=== PATIENT | female | born 1965 | race Caucasian/White ===

== ENCOUNTER 2023-10-13 16:45 | Outpatient (AMB) | payer OTHER, SELFPAY ==
--- NOTE | 2023-10-13 16:52 | MHC.PC.OV ---
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: No Was dental information given to patient?: Patient has dentist HPI HPI Comments History of Present Illness Details This is a 58-year-old female with mild major depression, anxiety, hypertension and pure hypercholesterolemia that comes accompanied by to establish care. She would like counseling and psychiatry for depression. Blood pressure stable. Complains of palpitation and used to see a Cardiology in the past. Complains of muscle spasm and lumbar pain and will be referred to Ortho. Last colonoscopy was 3 years ago and needed to be repeated in 5 years. Had hysterectomy for benign reasons therefore no need for Pap smear. [facility] Surgical History (Updated 10/13/23 @ 17:20 by Angella Bauman MD) H/O lithotripsy History of hysterectomy Family History Father Diabetes Prostate cancer Hypertension Mother Diabetes Hypertension Cancer Family/Other Substance use disorder Mental health disorder Social History Housing: Apartment Alcohol intake: never Patient Tobacco Use Status: Never used Tobacco e-Cigarette/Vaping Use: Never Used Second Hand Smoke Exposure: No service: No Current occupational status: unemployed Cognitive needs: No Hearing needs: No Vision needs: Yes Questionnaire PHQ-9 Over the last 2 weeks, how often have you been bothered by any of the following problems? 1. Little interest or pleasure in doing things: not at all 2. Feeling down, depressed, or hopeless: nearly every day 3. Trouble falling or staying asleep, or sleeping too much: more than half the days 4. Feeling tired or having little energy: not at all 5. Poor appetite or overeating: not at all 6. Feeling bad about yourself - or that you are a failure or have let yourself or your family down: not at all 7. Trouble concentrating on things, such as reading the newspaper or watching television: several days 8. Moving or speaking so slowly that other people could have noticed. Or the opposite - being so fidgety or restless that you have been moving around a lot more than usual: several days 9. Thoughts that you would be better off or of hurting yourself in some way: not at all Total score: 7 Depression Screening Interpretation: Positive Depression Screening Follow-up: Existing condition, In treatment and Follow-up Visit Requested Depression Screening Done: Yes 27937 - PHQ-9 Billing: Yes Source: Developed by Drs. Juan Manuel Zimmerman, Saumya Bauman, Leroy Greene and colleagues, with an educational jere from [employer]. Thrive Questionnaire Date Thrive assessed: 10/13/23 I am a: Patient What is your living situation today?: I have a steady place to live Within the past 12 months, did the food you bought not last and you didn't have the money to get more?: Never true Within the past 12 months, did you worry whether your food would run out before you got money to buy more?: Never true Do you have trouble paying for medicines?: No Do you have trouble getting transportation to medical appointments?: No Do you have trouble paying your heating and electricity bill?: No Do you have trouble taking care of your child, family member or friend?: No Do you have trouble with day-to-day activities such as bathing, preparing meals, shopping, managing finances, etc.?: No Are you currently unemployed and looking for a job?: No Are you interested in more education?: No Please select the resources that you would like help with: None Currently or been in a relationship where the following occur: no concerns reported THRIVE Score: 0 AUDIT C Alcohol Use Questionnaire (AUDIT-C) 1. How often do you have a drink containing alcohol?: Never Total Score: 0 Score Reviewed/Action Taken: No KATHERINE-7 AMB Questionnaire KATHERINE-7 Date KATHERINE - 7 assessed: 10/13/23 Feeling nervous, anxious, or on edge: 3 = Nearly every day Not being able to stop or control worryin = More than half the days Worrying too much about different things: 3 = Nearly every day Trouble relaxin = Several days Being so restless that it is hard to sit still: 1 = Several days Becoming easily annoyed or irritable: 1 = Several days Feeling afraid as if something awful might happen: 1 = Several days Total KATHERINE-7 score (0-4 normal; 5-9 mild; 10-14 moderate; 15-21 severe): 12 Source: Developed by Drs. Juan Manuel Zimmerman, Saumya Bauman, Leroy Greene and colleagues, with an educational jere from [employer]. KATHERINE-7 Assessment Billing KATHERINE-7 Assessment Tool: KATHERINE-7 Assessment 16456 Review of Systems Card Denies chest pain at rest, Denies chest pain with activity, Denies edema, Denies irregular heart rhythm, Denies claudication, Denies dyspnea, Denies dyspnea on exertion, Denies orthopnea, Denies paroxysmal nocturnal dyspnea and Denies slow heart rate Resp Denies cough, Denies dyspnea and Denies dyspnea on exertion Physical exam (Primary Care) Vital Signs: Last Vital Signs BP 130/80 10/13/23 16:55 BMI result Body Mass Index 33.8 Tobacco/Smoking Status: Tobacco use Status Tobacco use date assessed 10/13/23 10/13/23 17:07 Patient Tobacco Use Status Never used Tobacco 10/13/23 17:07 e-Cigarette/Vaping Use Never Used 10/13/23 17:07 PHQ-9: PHQ-9 Score PHQ-9: Total score 7 10/13/23 17:37 Depression Screening Interpretation: Positive Depression Screening Follow-up: Existing condition, In treatment and Follow-up Visit Requested Thrive Assessment: Date of Thrive Assessment Date Thrive assessed 10/13/23 10/13/23 17:07 Currently or been in a relationship where the following occur: no concerns reported Resp Effort & Inspection: normal respiratory effort Auscultation: clear to auscultation bilaterally Cardio Jugular venous distension: no JVD Rate: regular rate Rhythm: regular rhythm Heart sounds: S1 normal heart sound present and S2 normal heart sound present Extrem General: Yes full ROM Assessment and Plan Assessment & Plan (1) Mild major depression: Code(s): F32.0 - Major depressive disorder, single episode, mild Plan: Continue bupropion. Referred to counseling. (2) Pure hypercholesterolemia: Code(s): E78.00 - Pure hypercholesterolemia, unspecified Plan: Continue statins. (3) KATHERINE (generalized anxiety disorder): Code(s): F41.1 - Generalized anxiety disorder Plan: Continue bupropion. (4) Essential hypertension: Code(s): I10 - Essential (primary) hypertension Plan: Continue losartan. Blood pressure goal is equal or less than 130/80. Orders: Orders ECG 12 lead EKG 10/13/23 R00.2 - Palpitations Comprehensive [place]. Panel Fast 10/13/23 I10 - Essential (primary) hypertension Thyroid Stimulating Hormone 10/13/23 R00.2 - Palpitations Vitamin D 25-OH Total 10/13/23 E55.9 - Vitamin D deficiency, unspecified US renal BI 10/13/23 N20.0 - Calculus of kidney Vitamin B12 and Folate 10/13/23 E53.8 - Deficiency of other specified B group vitamins MM screening mammo BI 10/13/23 Z12.31 - Encounter for screening mammogram for malignant neoplasm of breast XR DEXA axial skeleton 10/13/23 N95.9 - Unspecified menopausal and perimenopausal disorder Lipid Panel 10/13/23 E78.5 - Hyperlipidemia, unspecified, I10 - Essential (primary) hypertension Complete Blood Count Auto Diff 10/13/23 D64.9 - Anemia, unspecified, M62.838 - Other muscle spasm Referrals Cardiology Referral R00.2 - Palpitations Counseling Referral F32.0 - Major depressive disorder, single episode, mild, F41.1 - Generalized anxiety disorder Orthopedics Referral M54.50 - Low back pain, unspecified Coding Level of Care Code New Pt Level 4 (31357) Complex EM visit Add On G2211 Diagnoses Mild major depression F32.0 Pure hypercholesterolemia E78.00 KATHERINE (generalized anxiety disorder) F41.1 Essential hypertension I10 Additional Codes KATHERINE-7 Assessment Billing - KATHERINE-7 Assessment Tool: KATHERINE-7 Assessment 65534 ([id number]) Time Spent (min) 24
[2023-10-13 16:55] VITALS: BP 130/80; BMI 33.8
== END 2023-10-13 17:34 | disposition home or self-care (01) ==
PROVIDERS: PCP Internal Medicine; Visit Provider Internal Medicine
DX: I10 Essential (primary) hypertension (principal); F32.0 Major depressive disorder, single episode, mild; E78.00 Pure hypercholesterolemia, unspecified; F41.1 Generalized anxiety disorder
CPT/HCPCS: 99204; G2211

== ENCOUNTER 2023-10-24 12:52 | Outpatient (REF) | payer OTHER, SELFPAY ==
--- NOTE | ~2023-10-24 | US_ITS ---
EXAMINATION: US RETROPERITONEAL LIMITED (RENAL ONLY) CLINICAL INFORMATION: Calculus of kidney. COMPARISON: None available. TECHNIQUE: Real-time imaging of the kidneys. FINDINGS: RIGHT KIDNEY: 10.4 x 5.0 x 5.2 cm (SAG x AP x TRV). The kidney is normal in size, contour, and echogenicity. Renal cortical thickness is normal. There are at least one echogenic focus measuring 3 mm with twinkle artifact suggestive of a non-obstructing stone. No focal parenchymal lesions or hydronephrosis. LEFT KIDNEY: 9.2 x 4.8 x 5.0 cm (SAG x AP x TRV). The kidney is normal in size, contour, and echogenicity. Renal cortical thickness is normal. There are multiple echogenic foci seen, the largest measuring 3 mm suggestive of a renal stone. No shadowing seen. No focal parenchymal lesions or hydronephrosis. US/US renal BI IMPRESSION: Question of a non-obstructing renal calculi. CT would be the exam of choice for definitive diagnosis.
[2023-10-24 13:07] LABS: MANUAL DIFF FLAG NO
[2023-10-24 14:04] LABS: Basophils Percent Auto 0.5 % (0-2); Eosinophils Absolute Auto 0.1 X10*3/uL (0.0-0.4); Eosinophils Percent Auto 2.2 % (0-4); Hematocrit 41.9 % (37.0-47.0); Hemoglobin 13.8 g/dl (12.0-16.0); Imm Gran Abs Auto 0.02 X10*3/uL (0.00-0.03); Imm Gran Pct Auto 0.3 % (0.0-0.4); Lymphocytes Absolute Auto 1.9 X10*3/uL (1.2-4.9); Lymphocytes Percent Auto 29.6 % (20-40); Mean Corpuscular HGB Conc 32.9 g/dl (31.0-35.0); Mean Corpuscular Hemoglobin 26.5 pg (27.0-33.0); Mean Corpuscular Volume 80.6 fL (80.0-98.0); Mean Platelet Volume 10.4 fL (9.4-12.3); Monocytes Absolute Auto 0.7 X10*3/uL (0.1-1.2); Monocytes Percent Auto 10.1 % (2-11); Neutrophils Absolute Auto 3.7 x10*3/uL (2.0-8.3); Neutrophils Percent Auto 57.3 % (45-73); Platelet Count 277 X10*3/uL (160-400); Red Cell Distribution Width 13.2 % (11.0-16.0); White Blood Count 6.4 X10*3/uL (4.8-10.8)
[2023-10-24 14:47] LABS: Alanine Aminotransferase 31 U/L (0-31); Albumin Level 4.1 g/dL (3.5-5.0); Alkaline Phosphatase 72 U/L (39-117); Anion Gap 13 (12-20); Aspartate Amino Transferase 26 U/L (5-31); Bilirubin Total 0.4 mg/dL (0.0-1.0); Blood Urea Nitrogen 16 mg/dL (9-16); Calcium 9.5 mg/dL (8.4-10.2); Carbon Dioxide 23 mmol/L (22-29); Chloride 106 mmol/L (96-108); Cholesterol 205 mg/dL (<200); Estimated Glomerular Filt Rate > 60; Glucose Fasting 103 mg/dL (60-99); HDL Cholesterol 56 mg/dL (>40); LDL Cholesterol Calculated 124 mg/dL (<100); Potassium 3.9 mmol/L (3.3-5.1); Sodium 138 mmol/L (135-145); Total Protein 7.1 g/dL (6.5-8.0); Triglycerides 129 mg/dL (<150)
[2023-10-24 15:02] LABS: Thyroid Stimulating Hormone 1.11 uIU/mL (0.32-4.0); Vitamin D 25-OH Total 30.6 ng/mL (>30)
[2023-10-24 15:14] LABS: Folate 12.3 ng/mL (> or = 4.0); Vitamin B12 354 pg/mL (200-900)
== END 2023-10-24 12:53 | disposition home or self-care (01) ==
LOC: HO.US 12:52
PROVIDERS: PCP Internal Medicine; Visit Provider Internal Medicine
DX: N20.0 Calculus of kidney (principal); I10 Essential (primary) hypertension; E55.9 Vitamin D deficiency, unspecified; E53.8 Deficiency of other specified B group vitamins; R00.2 Palpitations; E78.5 Hyperlipidemia, unspecified; D64.9 Anemia, unspecified; M62.838 Other muscle spasm
CPT/HCPCS: 36415; 76775; 80053; 80061; 82306; 82607; 82746; 84443; 85025

== ENCOUNTER 2023-11-14 13:16 | Outpatient (REF) | payer OTHER, SELFPAY ==
--- NOTE | ~2023-11-14 | MM_ITS ---
EXAMINATION: MM SCREENING DIGITAL BREAST TOMOSYNTHESIS, BILATERAL CLINICAL INFORMATION: Screening. Asymptomatic. COMPARISON: Mammography: There are no prior mammograms for comparison. TECHNIQUE: Digital breast tomosynthesis is performed in both the craniocaudal and mediolateral oblique views along with computer-aided detection (CAD). Synthesized 2D images are generated from the tomosynthesis. FINDINGS: There are scattered areas of fibroglandular density (ACR BI-RADS breast composition Category b). There are no significant masses, abnormal calcifications, or other abnormalities. MM/MM tomosynthesis screening BI IMPRESSION: No mammographic evidence of malignancy. ASSESSMENT: BI-RADS BI-RADS 1 - Negative RECOMMENDATION: Routine annual mammography screening. 1 year F/U This examination should not preclude the clinical evaluation of a suspicious palpable abnormality. This patient's information was entered into a reminder system with a target due date for their next mammogram.
--- NOTE | ~2023-11-14 | MM_ITS ---
EXAMINATION: BONE DENSITOMETRY CLINICAL INDICATION: Unspecified menopausal and perimenopausal disorder. COMPARISON: This is the patient's baseline examination. TECHNIQUE: Using a Gingr DXA System (software version: 13.1) manufactured by [employer], dual-energy x-ray absorptiometry was performed of the lumbar spine and left hip. The images are of good technical quality. Summary results are attached. FINDINGS: LEFT FEMUR, NECK: BMD 0.956 g/cm2, Z-score 0.4, T-score -0.6, normal. LEFT FEMUR, TOTAL: BMD 1.070 g/cm2, Z-score 1.1, T-score 0.5, normal. AP SPINE L1-L4: BMD 1.184 g/cm2, Z-score 0.8, T-score 0.0, normal. IDENTIFIED RISK FACTORS: Menopause, hysterectomy, bilateral oophorectomy, parental hip fracture, height loss. HISTORY OF FRACTURE: None listed. MEDICATIONS: Calcium. MM/XR DEXA axial skeleton IMPRESSION: 1. DIAGNOSIS: Normal bone density based on the lowest T-score value of -0.6 in the femoral neck applying World Health Organization criteria. 2. 10-YEAR FRACTURE RISK PREDICTION, FRAX: According to the guidelines, FRAX calculation should only be performed on patients in the osteopenia bone density category. Therefore, FRAX was not performed on this patient. 3. Treatment Recommendations: NOF guidelines recommend consideration for treatment in postmenopausal women and men age 50 and older presenting with the following: -A hip or vertebral (clinical or morphometric) fracture. -T-score less than or equal to -2.5 at the femoral neck or spine after appropriate evaluation to exclude secondary causes. -Low bone mass at the hip or spine and a 10-year fracture probability by FRAX of greater than or equal to 3% for hip fracture or greater than or equal to 20% for major osteoporotic fracture based on the [place] adapted WHO algorithm. 4. Other Recommendations: All treatment decisions require clinical judgment and consideration of individual patient factors, including patient preferences, comorbidities, previous drug use, risk factors not captured in the FRAX model (e.g. frailty, falls, vitamin D deficiency, increased bone turnover, interval significant decline in bone density) and possible under or overestimation of fracture risk by FRAX. FUTURE SCAN RECOMMENDATION: People with diagnosed cases of osteoporosis or at high risk for fracture should have regular bone mineral density tests. For patients eligible for Medicare, routine testing is allowed once every 2 years. The testing frequency can be increased to one year for patients who have rapidly progressing disease, those who are receiving or discontinuing medical therapy to restore bone mass, or have additional risk factors.
== END 2023-11-14 13:17 | disposition home or self-care (01) ==
LOC: HO.MAMMO 13:16
PROVIDERS: PCP Internal Medicine; Visit Provider Internal Medicine
DX: Z12.31 Encounter for screening mammogram for malignant neoplasm of breast (principal); Z13.820 Encounter for screening for osteoporosis; Z78.0 Asymptomatic menopausal state
CPT/HCPCS: 77063; 77067; 77080

== ENCOUNTER → 2023-11-14 13:45 | Outpatient (BNV) | payer OTHER, SELFPAY | PROVIDERS: PCP Internal Medicine; Visit Provider Radiology Diagnostic Radiology | DX: Z12.31 Encounter for screening mammogram for malignant neoplasm of breast (principal) | CPT/HCPCS: 77063; 77067 ==

== ENCOUNTER 2023-11-20 16:10 | Outpatient (AMB) | payer OTHER, SELFPAY ==
[2023-11-20 16:12] VITALS: BP 120/70; BMI 34.0
--- NOTE | 2023-11-20 16:12 | A.OFFPC_ITS ---
Vital Signs 11/20/23 16:12 Height 5 ft 1 in Weight 180 lb BMI 34.0 BP 120/70 Blood Pressure Location Lt brachial Position Sitting Intake Visit Reasons: 6 week f/u Intake Note: Patient here for a 6 week follow up Shipper And Receiving Required: No Accompanied by: Spouse Allergies morphine Adverse Reaction (Severe, Verified 11/20/23 16:24) dizziness, heart palpitation Medication List - Last Reconciled 11/20/23 by Angella Bauman MD atorvastatin 20 mg PO BEDTIME bupropion HCl XL 150 mg PO QAM estradiol 1 mg PO DAILY losartan 25 mg PO DAILY 90 days minoxidil 2.5 mg PO DAILY omega-3 fatty acids 3,000 mg PO BID Tobacco use date assessed: 10/13/23 Dental Screening Dental Screen Date: 10/13/23 HPI HPI Comments History of Present Illness Details This is a 58-year-old female with mild major depression, anxiety, hypertension and pure hypercholesterolemia that comes accompanied by for follow-up on her conditions. Depression and anxiety stable with bupropion and is still looking for counseling. Blood pressure well controlled with losartan and minoxidil. Cholesterol stable with statins and reports no side effects. Had an ultrasound of the kidneys showing a questionable nephrolithiasis and was recommended to have a CT scan which was already ordered. She is obese with a BMI of 34 and was advised to diet and exercise to reach BMI goal less than 30. [facility], [facility] Surgical History H/O lithotripsy History of hysterectomy Family History Father Diabetes Prostate cancer Hypertension Mother Diabetes Hypertension Cancer Family/Other Substance use disorder Mental health disorder Social History Housing: Apartment Alcohol intake: never Patient Tobacco Use Status: Never used Tobacco e-Cigarette/Vaping Use: Never Used Second Hand Smoke Exposure: No service: No Current occupational status: unemployed Cognitive needs: No Hearing needs: No Vision needs: Yes Questionnaire Thrive Questionnaire Date Thrive assessed: 10/13/23 KATHERINE-7 AMB Questionnaire KATHERINE-7 Date KATHERINE - 7 assessed: 10/13/23 Source: Developed by Drs. Juan Manuel Zimmerman, Saumya Bauman, Leroy Greene and colleagues, with an educational jere from [employer]. Review of Systems Const All systems reviewed & are unremarkable except as noted in HPI and below Card Denies chest pain at rest, Denies chest pain with activity, Denies edema, Denies irregular heart rhythm, Denies claudication, Denies dyspnea, Denies dyspnea on exertion, Denies orthopnea, Denies paroxysmal nocturnal dyspnea and Denies slow heart rate Resp Denies cough, Denies dyspnea and Denies dyspnea on exertion GI Denies abdominal pain, Denies change in bowel habits, Denies excessive flatus, Denies nausea and Denies vomiting Denies urinary incontinence, Denies urinary hesitancy and Denies urinary urgency Musc Denies atrophy, Denies deformity and Denies limited range of motion Physical exam (Primary Care) Vital Signs: Last Vital Signs BP 120/70 11/20/23 16:12 BMI result Body Mass Index 34.0 Tobacco/Smoking Status: Tobacco use Status Tobacco use date assessed 10/13/23 11/20/23 16:18 Patient Tobacco Use Status Never used Tobacco 11/20/23 16:18 e-Cigarette/Vaping Use Never Used 11/20/23 16:18 Thrive Assessment: Date of Thrive Assessment Date Thrive assessed 10/13/23 11/20/23 16:18 Resp Effort & Inspection: normal respiratory effort Auscultation: clear to auscultation bilaterally Cardio Jugular venous distension: no JVD Rate: regular rate Rhythm: regular rhythm Heart sounds: S1 normal heart sound present and S2 normal heart sound present Extrem General: Yes full ROM Assessment and Plan Assessment & Plan (1) Mild major depression: Code(s): F32.0 - Major depressive disorder, single episode, mild Plan: Continue bupropion. (2) Essential hypertension: Code(s): I10 - Essential (primary) hypertension Plan: Continue losartan and minoxidil. Blood pressure goal is equal or less than 130/80. (3) Pure hypercholesterolemia: Code(s): E78.00 - Pure hypercholesterolemia, unspecified Plan: Continue statins. (4) KATHERINE (generalized anxiety disorder): Code(s): F41.1 - Generalized anxiety disorder Plan: Continue bupropion. Medications: Changed From atorvastatin 20 mg PO BEDTIME To atorvastatin 20 mg PO BEDTIME 90 tabs 1RF 90 days From bupropion HCl XL 150 mg PO QAM To bupropion HCl XL 150 mg PO QAM 90 tabs 1RF 90 days From minoxidil 2.5 mg PO DAILY To minoxidil 2.5 mg PO DAILY 90 tabs 1RF 90 days From omega-3 fatty acids 3,000 mg PO BID To omega-3 fatty acids 3,000 mg (3 x 1,000 mg) PO BID 540 caps 1RF 90 days Refilled losartan 25 mg PO DAILY 90 tabs 0RF 90 days I10 - Essential (primary) hypertension Coding Level of Care Code Est Pt Level 4 (43730) Complex EM visit Add On G2211 Diagnoses Mild major depression F32.0 Essential hypertension I10 Pure hypercholesterolemia E78.00 KATHERINE (generalized anxiety disorder) F41.1 Time Spent (min) 22
== END 2023-11-20 16:36 | disposition home or self-care (01) ==
PROVIDERS: PCP Internal Medicine; Visit Provider Internal Medicine
DX: F32.0 Major depressive disorder, single episode, mild (principal); I10 Essential (primary) hypertension; E78.00 Pure hypercholesterolemia, unspecified; F41.1 Generalized anxiety disorder
CPT/HCPCS: 99214; G2211

== ENCOUNTER 2024-01-07 16:45 | Outpatient (REF) | payer OTHER, SELFPAY ==
--- NOTE | ~2024-01-07 | CT_ITS ---
EXAMINATION: CT ABDOMEN WITHOUT CONTRAST CLINICAL INFORMATION: Calculus of kidney. COMPARISON: None available. TECHNIQUE: Contiguous axial thin section helical images of the abdomen were performed without intravenous contrast. The data set was reformatted in the coronal and sagittal planes and reviewed on an independent workstation. This CT examination was performed using dose optimization techniques as appropriate, variously including the following: *Automated exposure control *Adjustment of mA and/or kV according to patient size (this includes techniques or standardized protocols for targeted exams where dose is matched to indication/reason for exam; i.e. extremities or head) *Use of iterative reconstruction technique DLP: 326 mGy-cm FINDINGS: LUNG BASES: The visualized lung bases are unremarkable. LIVER, GALLBLADDER, AND BILIARY TREE: The liver is normal in size, shape, and attenuation. No focal hepatic lesion or biliary ductal dilatation is present. The gallbladder is unremarkable with no evidence of radiopaque gallstones, gallbladder wall thickening, or obvious pericholecystic inflammatory changes. PANCREAS: Unremarkable. SPLEEN: Unremarkable. ADRENAL GLANDS: Unremarkable. KIDNEYS AND URETERS: The kidneys are normal in size, shape, and attenuation. Some tiny punctate calcifications are seen in both kidneys with the largest measuring 3.5 x 2.0 mm on the right and 2.3 mm on the left. There is some minimal areas of hyperattenuation in the medullary regions of the kidneys. No hydronephrosis, hydroureter, or ureteral calculi seen. No perinephric stranding. GASTROINTESTINAL TRACT: The visualized small and large bowel are unremarkable. The appendix is unremarkable. ABDOMINAL WALL: No significant hernia is appreciated. LYMPH NODES: No retroperitoneal lymphadenopathy. VASCULAR: Unremarkable. OSSEOUS STRUCTURES: Unremarkable. There is minimal retrolisthesis of L2 upon L3. CT/CT abdomen wo IV con IMPRESSION: Bilateral tiny nonobstructing renal calculi. Electronically signed by: Sergio Klein MD 03/05/2024 01:58 PM EST
== END 2024-01-07 16:46 | disposition home or self-care (01) ==
LOC: HO.CT 16:45
PROVIDERS: PCP Internal Medicine; Visit Provider Internal Medicine
DX: N20.0 Calculus of kidney (principal)
CPT/HCPCS: 74150

== ENCOUNTER 2024-01-21 12:54 | Outpatient (AMB) | payer OTHER, SELFPAY ==
[2024-01-21 12:58] VITALS: BP 140/82; PULSE 87; BMI 33.6
--- NOTE | 2024-01-21 12:58 | A.OFFVIS_ITS ---
Vital Signs 01/21/24 12:58 Height 5 ft 1 in Weight 177 lb 11.081 oz BMI 33.6 BP 140/82 H Blood Pressure Location Lt brachial Position Sitting Pulse 87 Pulse Source Monitor Intake Visit Reasons: pnp/dr zapata/palpitations Solid Waste Analyst Required: Yes Solid Waste Analyst Language: Auto Engine Mechanic Name: [email or web address]/[id number] Accompanied by: Significant Other Allergies morphine Adverse Reaction (Severe, Verified 11/20/23 16:24) dizziness, heart palpitation Medication List - Last Reconciled 01/21/24 by Karan Elliott MD atorvastatin 20 mg PO BEDTIME 90 days bupropion HCl XL 150 mg PO QAM 90 days losartan 25 mg PO DAILY 90 days minoxidil 2.5 mg PO DAILY 90 days omega-3 fatty acids 3,000 mg (3 x 1,000 mg) PO BID 90 days HPI Comments Details: Shelbi is here for consultation regarding palpitations. She states that she is taking medication for hair loss-probably minoxidil as listed her meds. According to her, each time he takes the pill she is having palpitations. No other cardiac symptoms like exertional angina. No documented to have coronary disease or myocardial infarction. [facility] Surgical History H/O lithotripsy History of hysterectomy Family History Father Diabetes Prostate cancer Hypertension Mother Diabetes Hypertension Cancer Family/Other Substance use disorder Mental health disorder Social History Housing: Apartment Alcohol intake: never Patient Tobacco Use Status: Never used Tobacco e-Cigarette/Vaping Use: Never Used Second Hand Smoke Exposure: No service: No Current occupational status: unemployed Cognitive needs: No Hearing needs: No Vision needs: Yes Review of Systems Const Denies chills, Denies fatigue, Denies fever(s), Denies frequent falls, Denies weakness, Denies weight gain and Denies weight loss ENT Denies dizziness Card Denies chest pain, Denies leg edema, Denies lightheadedness, Denies palpitations, Denies dyspnea and Denies dyspnea on exertion Resp Denies cough, Denies dyspnea and Denies dyspnea on exertion GI Denies hematochezia Musc Denies abnormal gait, Denies muscle weakness, Denies numbness, Denies radiating pain into limb and Denies tingling Neuro Denies abnormal gait, Denies dizziness, Denies frequent falls, Denies numbness, Denies tingling and Denies weakness Endo Denies fatigue and Denies palpitations Physical Exam Vital Signs: Last Vital Signs Pulse 87 01/21/24 12:58 BP 140/82 H 01/21/24 12:58 BMI result Body Mass Index 33.6 Const General: comfortable and no acute distress Orientation/consciousness: patient oriented x3 HEENT Other: Unremarkable Head: Yes normal to inspection Neck Neck: Yes normal visual inspection Chest Chest palpation & inspection: normal inspection of the chest Resp Auscultation: clear to auscultation bilaterally Cardio Palpation: normal PMI Heart sounds: S1 normal heart sound present, S2 normal heart sound present, no gallops, no murmurs and no rubs GI Palpation (GI): Soft to palpation Back/Spine/Pelvis Other: unremarkable Skin General skin exam: no rashes or lesions noted Neuro General: patient oriented x3 Extrem General: Yes normal to inspection Psych Mental Status: mental status grossly normal Office Procedures EKG Details: EKG with underlying sinus rhythm at 87/Min; leftward axis; cannot exclude a anterior infarct but more likely from body habitus; [place] [address]-[id number], Complete Assessment & Plan Assessment & Plan (1) Palpitations: Code(s): R00.2 - Palpitations Category: Medical Plan Patient feels there is a connection to taking hair loss medication, Minoxidil. We will ensure there is no cardiac pathology-get an echocardiogram and Holter. If these are unremarkable, then mainly reassurance. Discussed with . catering barista used. Orders: Orders CA echo transthoracic complete Today R00.2 - Palpitations ECG 7 day holter monitor Today R00.2 - Palpitations Coding Level of Care Code New Pt Level 3 (57440) Diagnoses Palpitations R00.2 CPT Codes EKG - CPT: 67266-Icixbycgywlwohbxi, Complete ([id number])
== END 2024-01-21 13:22 | disposition home or self-care (01) ==
PROVIDERS: PCP Internal Medicine; Visit Provider Internal Medicine
DX: R00.2 Palpitations (principal)
CPT/HCPCS: 93010; 99203

== ENCOUNTER → 2024-01-21 12:54 | Outpatient (BNVA) | payer OTHER, SELFPAY | PROVIDERS: PCP Internal Medicine; Visit Provider Internal Medicine | DX: R00.2 Palpitations (principal) | CPT/HCPCS: 93005; 99202 ==

== ENCOUNTER → 2024-03-01 13:44 | Outpatient (REF) | payer OTHER, SELFPAY ==
--- NOTE | 2024-03-01 13:48 | HM_ITS ---
Conclusion: 1. Patient was monitored for total period of 1 day and 21 hours 2. Baseline was normal sinus rhythm with average heart of 104 beats per minute 3. No significant pauses or arrhythmias noted 4. Frequent sinus tachycardia noted with 53% of the time heart rate about 100 beats per minute 5. No patient reported events MTDD
--- NOTE | 2024-03-01 13:48 | CA_ITS ---
Transthoracic Echocardiogram Patient (Last, First, Middle): Shelbi Carney, Gender: Female Date of : 1965 Age: 58 Procedure Date: 03/01/2024 Procedure Type: Transthoracic Echocardiogram Location: OP Height: 154.94 cm Weight: 79.38 kg BSA: 1.78 m2 Heart Rate: bpm BP: 130 / 80 mmHg Loftsman: MAGUE Referring MD: Karan Elliott MD Symptoms: R00.2 - Palpitations Study Quality: Adequate ECG Rhythm: Sinus Conclusions: - The left ventricular systolic function is normal. The calculated ejection fraction is 56% by biplane method. - No obvious valvular pathology seen on this study. Findings Left Ventricle Normal left ventricular cavity size. There is normal left ventricular wall thickness. The left ventricular systolic function is normal. The calculated ejection fraction is 56% by biplane method. There is no evidence of regional wall motion abnormalities. Evidence suggests grade I (mild) diastolic dysfunction. Right Ventricle Normal right ventricular cavity size and systolic function. Atria Both atria are normal in size. Aortic Valve There is a normal trileaflet aortic valve. There is no aortic valve stenosis. There is no aortic valve regurgitation. Mitral Valve The mitral valve appears normal. There is no mitral valve regurgitation. There is no mitral valve stenosis. Pulmonic Valve The pulmonic valve is likely normal. Tricuspid Valve There is trace tricuspid valve regurgitation. There is no evidence of pulmonary hypertension. Great Vessels The aortic annulus and asc aorta are normal in size. Venous The inferior vena cava is normal in size and collapses greater than 50% with inspiration. Pericardium/Pleural There is no evidence of pericardial effusion. Prior Study Comparison No prior study available for comparison. Recommendations, Care & Conclusions No obvious valvular pathology seen on this study. Measurements 2D Linear Measurements IVSd: 0.99 0.6-0.9/0.6-1.0 cm LVIDd: 3.14 3.9-5.3/4.2-5.9 cm LVIDd Index: 1.76 2.4-3.2/2.2-3.1 cm/m2 LVIDs: 2.04 2.0-3.6 cm LVPWd: 0.74 0.7-1.1 cm LA Diam: 3.00 2.7-3.8/3.0-4.0 cm LAIDs Index: 1.69 1.5-2.3 cm/m2 LV Mass: 87.85 67-162/88-224 g LV Mass Index: 49.35 43-95/49-115 g/m2 LVOT Diam: 2.00 3.0+(-)1.3 cm 2D Systolic Function EF 4C: 55.10 >55% EF 2C: 56.80 >55% EF BiP: 55.80 >55% Mitral Valve MV Pk E: 0.73 MV PK A: 1.12 MV Decel Time: 230.00 E/A: 0.70 E'Lateral: 8.27 E'Medial: 5.00 E/E' Med: 14.60 E/E' Lat: 8.80 PHT: 67.00 MVA PHT: 3.28 Decel Grainger: 3.17 Aortic Valve AoV Pk Sam: 1.39 AoV Mn Sam: 0.96 AoV VTI: 0.24 AoV Pk Grad: 8.00 Aov Mn Grad: 4.00 DIANE Cont.VTI: 2.11 LVOT LVOT Pk Sam: 0.85 LVOT Mn Sam: 0.57 LVOT VTI: 0.16 LVOT Pk Grad: 3.00 LVOT Mn Grad: 2.00 LVOT Diam: 2.00 LVOT Area: 3.14 Diastolic Function MV Pk E: 0.73 MV Pk A: 1.12 E/A: 0.70 E'Medial: 5.00 E/E' Med: 14.60 E' Laterial: 8.27 E/E' Lat: 8.80 Right Ventricle TAPSE (mm): 21.50 TVS' Sam: 11.00 Tricuspid Valve TR Pk Sam: 2.04 TR Pk Grad: 17.00 RA Press: 3.00 RVSP: 20.00 Great Vessels Aorta Sinus of Valsalva: 3.08 2.0-3.[address] Ridge: 2.27 1.7-3.4 cm Ao Asc: 2.80 2.1-3.4 cm Updated in Other Vendor System with Status of Final Karan Elliott MD electronically signed on 03/01/2024 3:46:19 PM with status of Final
== END ==
LOC: HO.CARD 13:44
PROVIDERS: PCP Internal Medicine; Visit Provider Internal Medicine
DX: R00.2 Palpitations (principal)
CPT/HCPCS: 93242; 93306

== ENCOUNTER → 2024-03-01 13:48 | Outpatient (BNV) | payer OTHER, SELFPAY | PROVIDERS: PCP Internal Medicine; Visit Provider Internal Medicine | DX: R00.0 Tachycardia, unspecified (principal) | CPT/HCPCS: 93244; 93306 ==

== ENCOUNTER 2024-03-04 16:31 | Outpatient (AMB) | payer OTHER, SELFPAY ==
--- NOTE | 2024-03-04 16:34 | A.OFFPC_ITS ---
Vital Signs 03/04/24 16:36 Height 5 ft 1 in Weight 178 lb BMI 33.6 BP 146/90 H Blood Pressure Location Lt brachial Position Sitting Intake Visit Reasons: annual exam Intake Note: Patient here for a physical exam Astrobiologist Required: No Accompanied by: Spouse Allergies morphine Adverse Reaction (Severe, Verified 03/04/24 16:49) dizziness, heart palpitation Medication List - Last Reconciled 03/04/24 by Angella Bauman MD atorvastatin 20 mg PO BEDTIME 90 days bupropion HCl XL 150 mg PO QAM 90 days losartan 25 mg PO DAILY 90 days omega-3 fatty acids 3,000 mg (3 x 1,000 mg) PO BID 90 days Tobacco use date assessed: 10/13/23 Dental Screening Dental Screen Date: 03/04/24 Did you have a dental visit in the last 12 months?: No Did you have a dental problem in the last 6 months where you did not have access to dental care?: No Was dental information given to patient?: Patient has dentist HPI HPI Comments History of Present Illness Details This is a 58-year-old female with mild major depression that comes for her physical exam. Depression stable with medications. Mammogram done 2023 was normal. FOBT done 2023 was normal. DEXA scan done 2023 was normal. Blood pr essure borderline normal to elevated today and will be recheck in 3 weeks by nurse navigator. She is obese with a BMI of 33.6 and has hypertension and pure hypercholesterolemia. Has tried diet and exercise with no significant improvement. I will start her on semaglutide if insurance approved. She feels like a vaginal growth that she noticed but I inspect her vagina and it looks normal. Vaginal exam was done with roving technician Shade Aguirre. [facility] Surgical History H/O lithotripsy History of hysterectomy Family History Father Diabetes Prostate cancer Hypertension Mother Diabetes Hypertension Cancer Family/Other Substance use disorder Mental health disorder Social History Housing: Apartment Alcohol intake: never Patient Tobacco Use Status: Never used Tobacco e-Cigarette/Vaping Use: Never Used Second Hand Smoke Exposure: No service: No Current occupational status: unemployed Cognitive needs: No Hearing needs: No Vision needs: Yes Questionnaire PHQ-9 Over the last 2 weeks, how often have you been bothered by any of the following problems? 1. Little interest or pleasure in doing things: not at all 2. Feeling down, depressed, or hopeless: not at all 3. Trouble falling or staying asleep, or sleeping too much: not at all 4. Feeling tired or having little energy: not at all 5. Poor appetite or overeating: not at all 6. Feeling bad about yourself - or that you are a failure or have let yourself or your family down: not at all 7. Trouble concentrating on things, such as reading the newspaper or watching television: not at all 8. Moving or speaking so slowly that other people could have noticed. Or the opposite - being so fidgety or restless that you have been moving around a lot more than usual: not at all 9. Thoughts that you would be better off or of hurting yourself in some way: not at all Total score: 0 Depression Screening Interpretation: Negative Depression Screening Done: Yes 26485 - PHQ-9 Billing: Yes Source: Developed by Drs. Juan Manuel Zimmerman, Saumya Bauman, Leroy Greene and colleagues, with an educational jere from [employer]. Thrive Questionnaire Date Thrive assessed: 10/13/23 I am a: Patient What is your living situation today?: I choose not to answer this question Within the past 12 months, did the food you bought not last and you didn't have the money to get more?: Often true Within the past 12 months, did you worry whether your food would run out before you got money to buy more?: I choose not to answer this question Do you have trouble paying for medicines?: No Do you have trouble getting transportation to medical appointments?: No Do you have trouble paying your heating and electricity bill?: I choose not to answer this question Do you have trouble taking care of your child, family member or friend?: I choose not to answer this question Do you have trouble with day-to-day activities such as bathing, preparing meals, shopping, managing finances, etc.?: No Are you currently unemployed and looking for a job?: No Are you interested in more education?: No Please select the resources that you would like help with: None Currently or been in a relationship where the following occur: I choose not to answer THRIVE Score: 1 AUDIT C Alcohol Use Questionnaire (AUDIT-C) 1. How often do you have a drink containing alcohol?: Never Total Score: 0 KATHERINE-7 AMB Questionnaire KATHERINE-7 Date KATHERINE - 7 assessed: 10/13/23 Feeling nervous, anxious, or on edge: 0 = Not at all Not being able to stop or control worryin = Not at all Worrying too much about different things: 0 = Not at all Trouble relaxin = Not at all Being so restless that it is hard to sit still: 0 = Not at all Becoming easily annoyed or irritable: 0 = Not at all Feeling afraid as if something awful might happen: 0 = Not at all Total KATHERINE-7 score (0-4 normal; 5-9 mild; 10-14 moderate; 15-21 severe): 0 Source: Developed by Drs. Juan Manuel Zimmerman, Saumya Bauman, Leroy Greene and colleagues, with an educational jere from [employer]. KATHERINE-7 Assessment Billing KTAHERINE-7 Assessment Tool: KATHERINE-7 Assessment 68367 Review of Systems Const All systems reviewed & are unremarkable except as noted in HPI and below Card Denies chest pain at rest, Denies chest pain with activity, Denies edema, Denies irregular heart rhythm, Denies claudication, Denies dyspnea, Denies dyspnea on exertion, Denies orthopnea, Denies paroxysmal nocturnal dyspnea and Denies slow heart rate Resp Denies cough, Denies dyspnea and Denies dyspnea on exertion GI Denies abdominal pain, Denies change in bowel habits, Denies excessive flatus, Denies nausea and Denies vomiting Neuro Denies behavioral changes and Denies lack of coordination Psych Denies behavioral changes Physical exam (Primary Care) Vital Signs: Last Vital Signs BP 146/90 H 03/04/24 16:36 Care Plan Goal for BP management: Recheck blood pressure with nurse navigator in 3 weeks. BMI result Body Mass Index 33.6 BMI Assessment/Plan discussion: High BMI High, discussed plan: lifestyle, weight reduction, dietary and physical activity Tobacco/Smoking Status: Tobacco use Status Tobacco use date assessed 10/13/23 03/04/24 16:43 Patient Tobacco Use Status Never used Tobacco 03/04/24 16:43 e-Cigarette/Vaping Use Never Used 03/04/24 16:43 PHQ-9: PHQ-9 Score PHQ-9: Total score 0 03/05/24 13:57 Depression Screening Interpretation: Negative Thrive Assessment: Date of Thrive Assessment Date Thrive assessed 10/13/23 03/04/24 16:43 Currently or been in a relationship where the following occur: I choose not to answer [facility] Head: Yes normal to inspection, Yes normocephalic and Yes atraumatic Ears: external ears normal Eyes General: appearance normal, both eyes and all related structures Eyelids: Yes eyelids normal Conjunctivae: conjunctivae normal Neck Neck: Yes normal visual inspection and Yes supple Resp Effort & Inspection: normal respiratory effort Auscultation: clear to auscultation bilaterally Cardio Jugular venous distension: no JVD Rate: regular rate Rhythm: regular rhythm Heart sounds: S1 normal heart sound present and S2 normal heart sound present GI Inspection: Yes normal to inspection Palpation (GI): Soft to palpation and nontender Auscultation: normal bowel sounds Speculum Exam - Vagina: normal appearance of the vagina Skin General skin exam: no rashes or lesions noted Neuro General: no focal motor deficits Extrem General: Yes full ROM Psych Appearance: grossly normal Office Procedures Flu Questionnaire Does the patient have a severe egg allergy?: No Does the patient have severe life threatening allergies?: No Does the patient have a fever or illness today?: No Has the patient ever had Guillain-Patterson Syndrome?: No Has the patient ever had any past reaction to a flu shot?: No Immunizations Fluarix Triv [id number] (PF) 45 mcg (15 mcg x 3)/0.5 mL IM syringe Performing Provider: Angella Bauman MD [place] [facility] [place] [facility]ered by: DERREK Hough on 03/04/24 17:11 Dose Route Admin Location Dispensed Lot Number Expiration Date [facility] Sagger Preparer 0.5 mL IM Right Deltoid 0.5 mL [id number] 10/18/24 [id number] [employer] VIS Given Date VIS Provided VIS Publication Date 03/04/24 Single Vaccine 20 Eligibility Eligibility Date Funding Source Not [facility] Eligible 03/04/24 Private Boostrix Tdap 2.5 Lf unit-8 mcg-5 Lf/0.5 mL intramuscular syringe Performing Provider: Angella Bauman MD [place] [facility] [place] [facility] Administered by: DERREK Hough on 03/04/24 17:13 Dose Route Admin Location Dispensed Lot Number Expiration Date NDC Sagger Preparer 0.5 mL IM Left Deltoid 0.5 mL [id number] 03/06/26 [id number] Spar[employer]ent VIS Given Date VIS Provided VIS Publication Date 03/04/24 Single Vaccine 20 Eligibility Eligibility Date Funding Source Not [facility] Eligible 03/04/24 Private Coding Level of Care Code Est Pt Prev Care 40-64y(82531) Diagnoses Physical exam Z00.00 Mild major depression F32.0 Additional Codes KATHERINE-7 Assessment Billing - KATHERINE-7 Assessment Tool: KATHERINE-7 Assessment 00470 ([id number]) PHQ-9 - 52066 - PHQ-9 Billing: Yes ([id number]) Time Spent (min) 31 Assessment & Plan Assessment & Plan (1) Physical exam: Code(s): Z00.00 - Encounter for general adult medical examination without abnormal findings Category: Medical Plan: Repeat in a year. (2) Mild major depression: Code(s): F32.0 - Major depressive disorder, single episode, mild Category: Medical Plan: Continue bupropion. Orders: Orders Influenza [id number] Immunization 03/04/24 Z23 - Encounter for immunization TDaP Immunization 03/04/24 Z23 - Encounter for immunization Lipid Panel 4 Months Z00.00 - Encounter for general adult medical examination without abnormal findings Comprehensive [place]. Panel Fast 4 Months Z00.00 - Encounter for general adult medical examination without abnormal findings Referrals Urology Referral N20.0 - Calculus of kidney Medications: New tirzepatide (weight loss) (Zepbound) for 4 weeks 2.5 mg (0.5 mL) subcut QWEEK 2 mL 0RF 4 weeks E66.811 - Obesity, class 1, E78.00 - Pure hypercholesterolemia, unspecified, I10 - Essential (primary) hypertension, Z68.33 - Body mass index [BMI] 33.0-33.9, adult
[2024-03-04 16:36] VITALS: BP 146/90; BMI 33.6
== END 2024-03-04 16:55 | disposition home or self-care (01) ==
PROVIDERS: PCP Internal Medicine; Visit Provider Internal Medicine
DX: Z00.00 Encounter for general adult medical examination without abnormal findings (principal); F32.0 Major depressive disorder, single episode, mild

== ENCOUNTER → 2024-03-04 16:31 | Outpatient (BNVA) | payer OTHER, SELFPAY | PROVIDERS: PCP Internal Medicine; Visit Provider Internal Medicine | DX: Z00.00 Encounter for general adult medical examination without abnormal findings (principal); Z23 Encounter for immunization; F32.0 Major depressive disorder, single episode, mild | CPT/HCPCS: 90471; 90656; 90715; 96127; 99396 ==

== ENCOUNTER 2024-04-19 14:57 | Outpatient (AMB) | payer OTHER, SELFPAY ==
[2024-04-19 15:01] VITALS: BP 120/70; PULSE 95; BMI 33.9
--- NOTE | 2024-04-19 15:01 | A.OFFVIS_ITS ---
Vital Signs 04/19/24 15:01 Height 5 ft 1 in Weight 179 lb 7.3 oz BMI 33.9 BP 120/70 Blood Pressure Location Lt brachial Position Sitting Pulse 95 Pulse Source Pulse Oximeter Intake Visit Reasons: F/U s/p testing Intake Note: f/up s/p testing Assembly Line Leader Required: No Assembly Line Leader Services: Assembly Line Leader Offered & Declined Assembly Line Leader Name: [email or web address] Accompanied by: Significant Other Allergies morphine Adverse Reaction (Severe, Verified 03/04/24 16:49) dizziness, heart palpitation Medication List - Last Reconciled 04/19/24 by Amanda Henry NP-C atorvastatin 20 mg PO BEDTIME 90 days bupropion HCl XL 150 mg PO QAM 90 days losartan 50 mg PO DAILY 90 days omega-3 fatty acids 3,000 mg (3 x 1,000 mg) PO BID 90 days tirzepatide (weight loss) (Zepbound) 2.5 mg (0.5 mL) subcut QWEEK 4 weeks HPI HPI F/U s/p testing: Details: Shelbi is a 59-year-old female with past medical history of hypertension, hyperlipidemia who was recently evaluated for heart palpitations. She underwent an echocardiogram and Holter monitor and now presents for follow-up. Today she reports that she still notices that her heart goes fast. She says she is very active throughout the day and does not sit down to rest much. She has not had any dizziness, presyncope, syncope, falls. No chest discomfort at rest or with activity. No shortness of breath, PND, orthopnea or edema. Her palpitations have improved some since stopping p.o. minoxidil. She was given the topical substitute but has not started it yet. She drinks 1 caffeinated coffee per day but does eat dark chocolate 4-5 evenings per week. is present. [facility] Surgical History H/O lithotripsy History of hysterectomy Family History Father Diabetes Prostate cancer Hypertension Mother Diabetes Hypertension Cancer Family/Other Substance use disorder Mental health disorder Social History Housing: Apartment Alcohol intake: never Patient Tobacco Use Status: Never used Tobacco e-Cigarette/Vaping Use: Never Used Second Hand Smoke Exposure: No service: No Current occupational status: unemployed Cognitive needs: No Hearing needs: No Vision needs: Yes Review of Systems Const All systems reviewed & are unremarkable except as noted in HPI and below Denies chills, Denies fatigue, Denies fever(s), Denies frequent falls, Denies weakness, Denies weight gain and Denies weight loss ENT Denies dizziness Card Denies chest pain, Reports rapid heart rate, Denies leg edema, Denies lightheadedness, Denies palpitations, Denies dyspnea and Denies dyspnea on exertion Resp Denies cough, Denies dyspnea and Denies dyspnea on exertion GI Denies hematochezia Musc Denies abnormal gait, Denies muscle weakness, Denies numbness, Denies radiating pain into limb and Denies tingling Neuro Denies abnormal gait, Denies dizziness, Denies frequent falls, Denies numbness, Denies tingling and Denies weakness Endo Denies fatigue and Denies palpitations Physical Exam Vital Signs: Last Vital Signs Pulse 95 04/19/24 15:01 BP 120/70 04/19/24 15:01 BMI result Body Mass Index 33.9 Const General: cooperative, healthy appearing, comfortable and no acute distress Orientation/consciousness: patient oriented x3 Neck Neck: Yes normal visual inspection and Yes no JVD Resp Effort & Inspection: normal respiratory effort Auscultation: clear to auscultation bilaterally, no crackles, no rales, no rhonchi and no wheezes Cardio Jugular venous distension: no JVD Rate: regular rate Rhythm: regular rhythm Heart sounds: S1 normal heart sound present, S2 normal heart sound present, no murmurs and no rubs Neuro General: patient oriented x3 Extrem General: Yes normal to inspection, No no pedal edema and No calf tenderness Psych Appearance: grossly normal Mental Status: mental status grossly normal Speech and movement: Normal speech and movement present Assessment & Plan Assessment & Plan (1) Palpitations: Code(s): R00.2 - Palpitations Category: Medical Plan: Reports of heart palpitations like her heart is beating fast. She was on p.o. minoxidil and felt that this had worsened her symptoms. She has now been off it for the last 2 months and does report some improvement. A Holter monitor was done on 03/01/2024 for 2 days showing sinus rhythm with average heart rate 104, sinus tach 53% of the time greater than 100. An echocardiogram done 03/01/2024 showed EF 56%, grade 1 diastolic dysfunction and no valve abnormalities. Test results reviewed with her in detail. Labs done 10/24/2023 showed TSH 1.11. She does drink 1 caffeinated beverage each morning and has dark chocolate most days. Reviewed the findings of sinus tachycardia. Discussed reduction in caffeinated beverages, maintain good hydration, physical activity as tolerated. Reviewed the possibility of starting medication to slow her heart rate and she declines at this time. She wants to see how things go and follow-up in a few months. Cardiology follow-up in 4 months, sooner if needed. (2) Sinus tachycardia: Code(s): R00.0 - Tachycardia, unspecified Category: Medical Plan: As above. EF is normal. (3) Essential hypertension: Code(s): I10 - Essential (primary) hypertension Category: Medical Plan: Normal range at this time. No medication changes made. Continue losartan. Plan Time spent on chart review, documentation, interview and assessment Coding Level of Care Code Est Pt Level 3 (43817) Complex EM visit Add On G2211 Diagnoses Palpitations R00.2 Sinus tachycardia R00.0 Essential hypertension I10 Time Spent (min) 24
== END 2024-04-19 15:40 | disposition home or self-care (01) ==
PROVIDERS: PCP Internal Medicine; Visit Provider Nurse Practitioner Family
DX: R00.2 Palpitations (principal); R00.0 Tachycardia, unspecified; I10 Essential (primary) hypertension
CPT/HCPCS: 99213; G2211

== ENCOUNTER → 2024-04-19 14:57 | Outpatient (BNVA) | payer OTHER, SELFPAY | PROVIDERS: PCP Internal Medicine; Visit Provider Nurse Practitioner Family | DX: I10 Essential (primary) hypertension (principal); R00.2 Palpitations; R00.0 Tachycardia, unspecified | CPT/HCPCS: 99212 ==

== ENCOUNTER 2024-05-06 10:45 | Outpatient (AMB) | payer OTHER, SELFPAY ==
--- NOTE | 2024-05-06 00:39 | MHC.OFFVIS ---
Intake Visit Reasons: bilateral nephrolithiasis Intake Note: New patient is present to establish care for mass on perianal Any Urology Medications: None Antibiotic Allergy: None Blood Thinner: None PVR: Family History: Bladder Cancer? No Prostate Cancer? 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 PFSH Surgical History H/O lithotripsy History of hysterectomy Family History Father Diabetes Prostate cancer Hypertension Mother Diabetes Hypertension Cancer Family/Other Substance use disorder Mental health disorder Social History Housing: Apartment Alcohol intake: never Patient Tobacco Use Status: Never used Tobacco e-Cigarette/Vaping Use: Never Used Second Hand Smoke Exposure: No service: No Current occupational status: unemployed Cognitive needs: No Hearing needs: No Vision needs: Yes Results AMB Urinalysis, Automated UA Leukoctes 0 Cherelle/uL Last Edit by Aliza Newsome CMA on 05/06/24 11:30 UA Nitrite Negative Last Edit by Aliza Newsome CMA on 05/06/24 11:30 UA Urobilinogen 0.2 mg/dL Last Edit by Aliza Newsome CMA on 05/06/24 11:30 UA Protein 15 mg/dL Last Edit by Aliza Newsome CMA on 05/06/24 11:30 UA pH 6.0 Last Edit by Aliza Newsome CMA on 05/06/24 11:30 UA Blood 80 Yon/uL Last Edit by Aliza Newsome CMA on 05/06/24 11:30 UA Specific [place] 1.020 Last Edit by Aliza Newsome CMA on 05/06/24 11:30 UA Ketone Negative Last Edit by Aliza Newsome CMA on 05/06/24 11:30 UA Bilirubin 0 mg/dL Last Edit by Aliza Newsome CMA on 05/06/24 11:30 UA Glucose 0 mg/dL Last Edit by Aliza Newsome CMA on 05/06/24 11:30 Results Reviewed Results Reviewed: Date of Service: 01/07/24 CT ABDOMEN WITHOUT CONTRAST CLINICAL INFORMATION: Calculus of kidney. COMPARISON: None available. TECHNIQUE: Contiguous axial thin section helical images of the abdomen were performed without intravenous contrast. The data set was reformatted in the coronal and sagittal planes and reviewed on an independent workstation. This CT examination was performed using dose optimization techniques as appropriate, variously including the following: *Automated exposure control *Adjustment of mA and/or kV according to patient size (this includes techniques or standardized protocols for targeted exams where dose is matched to indication/reason for exam; i.e. extremities or head) *Use of iterative reconstruction technique DLP: 326 mGy-cm FINDINGS: LUNG BASES: The visualized lung bases are unremarkable. LIVER, GALLBLADDER, AND BILIARY TREE: The liver is normal in size, shape, and attenuation. No focal hepatic lesion or biliary ductal dilatation is present. The gallbladder is unremarkable with no evidence of radiopaque gallstones, gallbladder wall thickening, or obvious pericholecystic inflammatory changes. PANCREAS: Unremarkable. SPLEEN: Unremarkable. ADRENAL GLANDS: Unremarkable. KIDNEYS AND URETERS: The kidneys are normal in size, shape, and attenuation. Some tiny punctate calcifications are seen in both kidneys with the largest measuring 3.5 x 2.0 mm on the right and 2.3 mm on the left. There is some minimal areas of hyperattenuation in the medullary regions of the kidneys. No hydronephrosis, hydroureter, or ureteral calculi seen. No perinephric stranding. GASTROINTESTINAL TRACT: The visualized small and large bowel are unremarkable. The appendix is unremarkable. ABDOMINAL WALL: No significant hernia is appreciated. LYMPH NODES: No retroperitoneal lymphadenopathy. VASCULAR: Unremarkable. OSSEOUS STRUCTURES: Unremarkable. There is minimal retrolisthesis of L2 upon L3. IMPRESSION: Bilateral tiny nonobstructing renal calculi. Assessment & Plan Assessment & Plan Orders: Orders AMB Urinalysis Automated Today Z13.9 - Encounter for screening, unspecified Coding
== END 2024-05-06 11:57 | disposition home or self-care (01) ==
PROVIDERS: PCP Internal Medicine; Visit Provider Urology
DX: Z13.9 Encounter for screening, unspecified (principal)

== ENCOUNTER → 2024-05-06 10:45 | Outpatient (BNVA) | payer OTHER, SELFPAY | PROVIDERS: PCP Internal Medicine; Visit Provider Urology | DX: N20.0 Calculus of kidney (principal) | CPT/HCPCS: 81003; 99202 ==

== ENCOUNTER 2024-06-26 14:41 | Emergency (ER) | payer OTHER, SELFPAY ==
[2024-06-26] VITALS (10 sets, daily range): BP systolic 117–161; BP diastolic 68–111; PULSE 81–111; RESP 12–18; TEMP 36.7–36.8; O2SAT 95–100; BMI 29.6
--- NOTE | 2024-06-26 | ECG_ITS ---
Test Reason : DIZZINESS Blood Pressure : */* mmHG Vent. Rate : 81 BPM Atrial Rate : 81 BPM P-R Int : 150 ms QRS Dur : 92 ms QT Int : 390 ms P-R-T Axes : 45 -53 20 degrees QTcB Int : 453 ms Normal sinus rhythm Left anterior fascicular block Abnormal ECG No previous ECGs available Referred By: Generic ED Physician Electronically Signed By: NANCY RIVAS MD
--- NOTE | 2024-06-26 15:23 | ED.DIZZY ---
HPI - Dizziness General Chief Complaint: Dizziness Stated Complaint: DIZZY, L SIDE NUMNESS,ABD PAIN PER EMS Time Seen by Provider: 06/26/24 14:57 Source: patient History of Present Illness ED Provider: Niharika Yoder NP HPI Narrative: patient is a 59-year-old female who presents emergency department via EMS with her spouse at bedside. Presents for evaluation of dizziness and nausea without vomiting with onset around 14:00 this afternoon. Has been states that she was cooking dinner had otherwise been feeling well at your typical self and she stated that she suddenly began to feel nauseous, he walked her to the couch and lied her down. She admits the dizziness feeling like a room spinning sensation that is exacerbated with position change particularly upon standing. Denies associated tinnitus. Denies history of similar symptoms in the past. It is intermittent in nature. Improves with rest. Denies fevers, chills, falls, head trauma, syncope, headache, vision changes, hearing changes, vomiting, palpitations, shortness of breath, lower extremity numbness or tingling, swelling Related Data Previous Rx's ?Medication ?Instructions ?Recorded bupropion HCl 150 mg 24 hr tablet, 150 mg PO QAM 90 days #90 tabs 11/20/23 extended release omega-3 fatty acids 1,000 mg 3,000 mg (3 x 1,000 mg) PO BID 90 11/20/23 days #540 caps tirzepatide (weight loss) 2.5 2.5 mg (0.5 mL) subcut QWEEK 4 03/04/24 mg/0.5 mL subcutaneous pen weeks #2 mL injector (Zepbound) losartan 50 mg tablet 50 mg PO DAILY 90 days #90 tabs 03/08/24 atorvastatin 20 mg tablet 20 mg PO BEDTIME 90 days #90 tabs 05/14/24 tirzepatide (weight loss) 5 mg/0.5 5 mg (0.5 mL) subcut QWEEK 4 weeks 05/20/24 mL subcutaneous pen injector #2 mL (Zepbound) tirzepatide (weight loss) 7.5 7.5 mg (0.5 mL) subcut QWEEK 4 06/21/24 mg/0.5 mL subcutaneous pen weeks #2 mL injector (Zepbound) Allergies Allergy/AdvReac Type Severity Reaction Status Date / Time morphine AdvReac Severe dizziness, Verified 06/26/24 14:56 heart palpitation Review of Systems Review of Systems: Yes all other systems are reviewed and are negative [facility] Past Medical History Attestation statement: The following information was validated with the patient. Source: old records reviewed Surgical History H/O lithotripsy History of hysterectomy Family History Family History Father Diabetes Prostate cancer Hypertension Mother Diabetes Hypertension Cancer Family/Other Substance use disorder Mental health disorder Social History Social History Housing: Apartment Alcohol intake: never Patient Tobacco Use Status: Never used Tobacco Smoked in Last 30 Days: No e-Cigarette/Vaping Use: Never Used Second Hand Smoke Exposure: No Use of substances other than those prescribed or required for medical reasons: No Advance Directives: No Advance Directives Information Provided: Yes Do you have a plan to hurt others: No Plan Patient : No service: No Current occupational status: unemployed Cognitive needs: No Hearing needs: No Vision needs: Yes Physical Exam Vital Signs: Vital Signs: Last Vital Signs Temp 98.1 F 06/26/24 18:40 Pulse 82 06/26/24 18:40 Resp 16 06/26/24 18:40 BP 131/86 06/26/24 18:40 Pulse Ox 97 06/26/24 18:40 O2 Del Method Room Air 06/26/24 18:40 BMI result Body Mass Index 29.6 Appearance: Alert.?Oriented to person, place and time. No acute distress.?Normal affect. Head: Normocephalic, atraumatic. No head, sinus or TMJ tenderness.? Eyes: Sclera white, conjunctiva pink. PERRL, 3 mm bilaterally. Visual baum full to confrontation, EOMi.?No Nystagmus. Ears: Bilateral ear canals clear, TM visible with good cone of light.? Nose: Nasal mucosa pink and moist with midline septum, nares patent bilaterally.? Mouth/ Throat: Oral mucosa pink and moist without lesions. Pharynx normal Neck: Normal inspection.? Neck supple.?? CVS: Heart sounds normal. Normal heart rate and rhythm.? Pulses normal.?? Respiratory: No respiratory distress.? Lung sounds clear to auscultation bilaterally?? Abdomen: Soft and non-tender. Normoactive bowel sounds. No pulsatile mass.?? Skin: Skin warm and dry.? Normal skin color.? Normal skin turgor.?? Extremities: No lower extremity edema. Neuro: No focal neurological deficit observed, CN II-XII intact, normal sensory observed, normal coordination observed. Level of consciousness: Appropriate for age. Motor strength: right upper extremity 5 /5, left upper extremity 5 /5, right lower extremity 5 /5, left lower extremity 5 /5.?Speech: Normal, Gait: Normal, Ymtglu-qt-zdon test: Normal, Dfmh-oc-vdgw test: Normal. Ambulates with normal steady gait. Course Reevaluation(s) Reevaluation #1: she was found to be orthostatic with a sitting BP of 161/89 pulse of 86 on standing 140/93 pulse of 91, >20pt drop in SB, Endorsing symptomatic dizziness on standing. will provide with IVF and re-assess. Reevaluation #2: Dizziness this significantly improved after receiving 1 L normal saline IV fluid, no longer with orthostatic hypotension. When asked, she does admit that she has not been drinking very much in addition to eating less since she has been on the to his appetite. We discussed the importance of maintaining adequate hydration, that the medication may make her have a decreased dense if there is but it is still important to remain hydrated to prevent complication. In addition it is important that she still maintain a well-balanced diet to ensure nutritional support. Time: 17:42 Medications Administered Discontinued Medications Generic Name Dose Route Start Last Admin Trade Name Freq PRN Reason Stop Dose Admin Sodium Chloride 1,000 mls @ 999 mls/hr 06/26/24 15:45 06/26/24 16:48 Ns IV 06/26/24 16:45 Infused .Q1H1M BREANNE Infusion Medical Decision Making Medical Decision Making MDM Narrative: patient is a 59-year-old female with past medical history of depression, hypertension, hypercholesterolemia, on Tirzepatide for weight loss who presents for evaluation of dizziness and nausea with sudden onset 14:00 as per HPI. Episodic in nature exacerbated with position change particularly standing. Neuro exam with no abnormal findings, no focal neuro deficits, no spontaneous or gaze evoked nystagmus, no ataxia, no diplopia, no dysarthria,no dysphagia, no dysphonia, no dysmetria. Will obtain CBC to evaluate for leukocytosis/ anemia, CMP to evaluate for abnormal electrolytes /abnormal renal function/ abnormal hepatic function, EKG and troponin to evaluate for ischemia/ACS. Will assess orthostatic vital signs to assess for hypotension, may possibly be BPPV. cerebellar function testing is normal lower suspicion for CVA. Differential Diagnosis Differential Diagnoses: The differential diagnosis associated with the presentation includes ( See narrative above) Admission/Observation Consideration of admission/observation: Escalation of care including admission/observation considered Lab Data MDM Lab Attestation statement: I reviewed the patient's lab results. 06/26/24 15:22 06/26/24 15:22 Labs: Lab Results 06/26/24 Range/Units 15:22 WBC 5.5 (4.8-10.8) X10*3/uL RBC 5.36 (4.20-5.50) X10*6/uL Hgb 13.8 (12.0-16.0) g/dl Hct 40.9 (37.0-47.0) % MCV 76.3 L (80.0-98.0) fL MCH 25.7 L (27.0-33.0) pg MCHC 33.7 (31.0-35.0) g/dl RDW 13.2 (11.0-16.0) % Plt Count 268 (160-400) X10*3/uL MPV 9.8 (9.4-12.3) fL Immature Gran % (Auto) 0.2 (0.0-0.4) % Neut % (Auto) 68.2 (45-73) % Lymph % (Auto) 22.9 (20-40) % [place] % (Auto) 7.2 (2-11) % Eos % (Auto) 1.1 (0-4) % Baso % (Auto) 0.4 (0-2) % Lymph # (Auto) 1.3 (1.2-4.9) X10*3/uL [place] # (Auto) 0.4 (0.1-1.2) X10*3/uL Eos # (Auto) 0.1 (0.0-0.4) X10*3/uL Baso # (Auto) 0.0 (0.0-0.2) X10*3/uL Abs Immat Gran (auto) 0.01 (0.00-0.03) X10*3/uL Absolute Neuts (auto) 3.7 (2.0-8.3) x10*3/uL Absolute Nucleated RBC 0.000 (0.0-0.012) X10*3/uL Nucleated RBC % (auto) 0.0 (0.0-0.2) /100WBC Sodium 136 (135-145) mmol/L Potassium 4.1 (3.3-5.1) mmol/L Chloride 106 (96-108) mmol/L Carbon Dioxide 21 L (22-29) mmol/L Anion Gap 13 (12-20) BUN 14 (9-16) mg/dL Creatinine 0.73 (0.5-1.4) mg/dL Estim Creat Clear Calc 73.8 Estimated GFR > 60 Random Glucose 131 H (60-115) mg/dL Calcium 9.6 (8.4-10.2) mg/dL Total Bilirubin 0.6 (0.0-1.0) mg/dL Direct Bilirubin 0.2 (0.0-0.5) mg/dL AST 28 (5-31) U/L ALT 27 (0-31) U/L Alkaline Phosphatase 77 (39-117) U/L Troponin I High Sens < 2.7 (<3.5-17.0) ng/L Total Protein 7.1 (6.5-8.0) g/dL Albumin 3.8 (3.5-5.0) g/dL Independent Interpretation I performed an independent interpretation of an: EKG ( EKG revealing a normal sinus rhythm with ventricular rate of 81, QTC 453, no ST elevation, no T-wave inversion) Independent Historian Clinical information obtained from an independent historian. History obtained from or confirmed by: Spouse and EMS External Record Review External record reviewed: Outpatient record Discharge Plan Discharge Clinical Impression: Dizziness, Orthostatic hypotension Patient Disposition: Home, Self-Care Instructions: Dizziness (ED) Additional Instructions: as discussed, there was a drop in your blood pressure particularly from sitting to standing were feeling the episode with feelings of dizziness worse with this position change, symptoms improved after receiving IV fluids. We did admit that you have been drinking less fluids over the past week, I recommend that you increase your fluid intake back to baseline 6-8 water bottles daily and be sure that you are staying well nourished with 3 well-balanced meals daily. Follow-up with PCP, return with new or worsening symptoms or concerns. Prescriptions: No Action losartan 50 mg tablet 50 mg PO DAILY 90 Days Qty: 90 1RF atorvastatin 20 mg tablet 20 mg PO BEDTIME 90 Days Qty: 90 1RF Zepbound 5 mg/0.5 mL pen injector 5 mg subcut QWEEK 28 Days Qty: 2 0RF Zepbound 7.5 mg/0.5 mL pen injector 7.5 mg subcut QWEEK 28 Days Qty: 2 0RF bupropion HCl 150 mg tablet extended release 24 hr 150 mg PO QAM 90 Days Qty: 90 1RF omega-3 fatty acids 1,000 mg capsule 3,000 mg PO BID 90 Days Qty: 540 1RF Zepbound 2.5 mg/0.5 mL pen injector 2.5 mg subcut QWEEK 28 Days Qty: 2 0RF Rx Instructions: for 4 weeks Referrals: Angella Chatman MD [Primary Care Provider] - Interventions: ED Discharge Assessment Last Done: 06/26/24 18:40 Discharge Date/Time: 06/26/24 18:41 Print Language: Kinyarwanda
[2024-06-26 15:27] LABS: MANUAL DIFF FLAG NO
[2024-06-26 15:31] LABS: Basophils Percent Auto 0.4 % (0-2); Eosinophils Absolute Auto 0.1 X10*3/uL (0.0-0.4); Eosinophils Percent Auto 1.1 % (0-4); Hematocrit 40.9 % (37.0-47.0); Hemoglobin 13.8 g/dl (12.0-16.0); Imm Gran Abs Auto 0.01 X10*3/uL (0.00-0.03); Imm Gran Pct Auto 0.2 % (0.0-0.4); Lymphocytes Absolute Auto 1.3 X10*3/uL (1.2-4.9); Lymphocytes Percent Auto 22.9 % (20-40); Mean Corpuscular HGB Conc 33.7 g/dl (31.0-35.0); Mean Corpuscular Hemoglobin 25.7 pg (27.0-33.0); Mean Corpuscular Volume 76.3 fL (80.0-98.0); Mean Platelet Volume 9.8 fL (9.4-12.3); Monocytes Absolute Auto 0.4 X10*3/uL (0.1-1.2); Monocytes Percent Auto 7.2 % (2-11); Neutrophils Absolute Auto 3.7 x10*3/uL (2.0-8.3); Neutrophils Percent Auto 68.2 % (45-73); Platelet Count 268 X10*3/uL (160-400); Red Blood Count 5.36 X10*6/uL (4.20-5.50); Red Cell Distribution Width 13.2 % (11.0-16.0); White Blood Count 5.5 X10*3/uL (4.8-10.8)
[2024-06-26] MEDS: 0.9 % Sodium Chloride 1,000 ML 999 ML IV (15:47)
--- NOTE | 2024-06-26 15:47 | PC.NURSE ---
patient a&ox3, iv previously inserted by ems, labs drawn, ekg performed, athletic monitor applied-nsr on monitor. orthostats performed, ivf started, family at bedside, plan of care ongoing
[2024-06-26 15:53] LABS: Alanine Aminotransferase 27 U/L (0-31); Albumin Level 3.8 g/dL (3.5-5.0); Anion Gap 13 (12-20); Aspartate Amino Transferase 28 U/L (5-31); Bilirubin Direct 0.2 mg/dL (0.0-0.5); Bilirubin Total 0.6 mg/dL (0.0-1.0); Blood Urea Nitrogen 14 mg/dL (9-16); Calcium 9.6 mg/dL (8.4-10.2); Carbon Dioxide 21 mmol/L (22-29); Chloride 106 mmol/L (96-108); Creatinine Clr Calc Pharmacy 73.8; Estimated Glomerular Filt Rate > 60; Glucose Random 131 mg/dL (60-115); Potassium 4.1 mmol/L (3.3-5.1); Sodium 136 mmol/L (135-145); Total Protein 7.1 g/dL (6.5-8.0)
[2024-06-26 15:54] LABS: Troponin-I High Sensitivity < 2.7 ng/L (<3.5-17.0)
[2024-06-26 16:10] LABS: Alkaline Phosphatase 77 U/L (39-117)
== END 2024-06-26 18:41 | disposition home or self-care (01) ==
PROVIDERS: Nurse Practitioner Family; Emergency Provider Emergency Medicine; PCP Internal Medicine
DX: R42 Dizziness and giddiness (principal); I95.1 Orthostatic hypotension; R11.2 Nausea with vomiting, unspecified; I10 Essential (primary) hypertension; E78.00 Pure hypercholesterolemia, unspecified; Z79.899 Other long term (current) drug therapy
CPT/HCPCS: 36415; 80048; 80076; 84484; 85025; 93005; 96360; 99284; 99285

== ENCOUNTER → 2024-06-26 15:01 | Outpatient (BNV) | payer OTHER, SELFPAY | PROVIDERS: Emergency Provider Emergency Medicine; PCP Internal Medicine; Visit Provider Internal Medicine Cardiovascular Disease | DX: I44.4 Left anterior fascicular block (principal) | CPT/HCPCS: 93010 ==

== ENCOUNTER 2024-07-16 11:36 | Outpatient (REF) | payer OTHER, SELFPAY ==
[2024-07-16 12:43] LABS: Alanine Aminotransferase 44 U/L (0-31); Alkaline Phosphatase 80 U/L (39-117); Anion Gap 8 (12-20); Aspartate Amino Transferase 29 U/L (5-31); Bilirubin Total 0.5 mg/dL (0.0-1.0); Blood Urea Nitrogen 12 mg/dL (9-16); Calcium 9.3 mg/dL (8.4-10.2); Carbon Dioxide 27 mmol/L (22-29); Chloride 111 mmol/L (96-108); Cholesterol 131 mg/dL (<200); Estimated Glomerular Filt Rate > 60; Glucose Fasting 130 mg/dL (60-99); HDL Cholesterol 51 mg/dL (>40); LDL Cholesterol Calculated 66 mg/dL (<100); Potassium 4.3 mmol/L (3.3-5.1); Sodium 142 mmol/L (135-145); Total Protein 6.8 g/dL (6.5-8.0); Triglycerides 71 mg/dL (<150)
== END 2024-07-16 11:37 | disposition home or self-care (01) ==
LOC: HO.LAB 11:36
PROVIDERS: PCP Internal Medicine; Visit Provider Internal Medicine
DX: Z00.00 Encounter for general adult medical examination without abnormal findings (principal); Z13.6 Encounter for screening for cardiovascular disorders
CPT/HCPCS: 36415; 80053; 80061

== ENCOUNTER 2024-07-19 11:20 | Outpatient (AMB) | payer OTHER, SELFPAY ==
--- NOTE | 2024-07-19 12:11 | MHC.OFFVIS ---
Intake Visit Reasons: 11w/[facility] Intake Note: Patient is present to office today for an 11 week follow up/[facility] Medications: Tamsulosin Antibiotic Allergy: None Blood Thinner: None Assistant Manager Pt Required: Yes Assistant Manager Pt Language: Paper Box Maker Name: Lanre Jackson-- Information Interpreted: non-clinical & clinical Accompanied by: Spouse Allergies morphine Adverse Reaction (Severe, Verified 07/19/24 12:20) dizziness, heart palpitation Medication List - Last Reconciled 07/19/24 by Conchita Vidal MD atorvastatin 20 mg PO BEDTIME 90 days bupropion HCl XL 150 mg PO QAM 90 days losartan 50 mg PO DAILY 90 days omega-3 fatty acids 3,000 mg (3 x 1,000 mg) PO BID 90 days tirzepatide (weight loss) (Zepbound) 5 mg (0.5 mL) subcut QWEEK 4 weeks tirzepatide (weight loss) (Zepbound) 7.5 mg (0.5 mL) subcut QWEEK 4 weeks tirzepatide (weight loss) (Zepbound) 2.5 mg (0.5 mL) subcut QWEEK 4 weeks HPI Comments Details: 07/19/24-- 59-year-old female presenting with nephrolithiasis. Discussed 24 hour urine results collected: 06/26/24 Total volume 1.18 L, Calcium 147 mg; Oxalate 31 mg, Citrate 495 mg, Sodium 101. Instructed on importance of fluid intake.I have discussed diet modification to decrease risk of forming more kidney stones. I have discussed low oxalate diet and specific foods to avoid including certain green leafy vegetables, chocalate, nuts, tea, beets, rubarb; low sodium, decreased use of animal protein and the importance of hydration drinking up to 2-2.5 liters of fluids and use of adding lemon to water to increase citrate in the diet. A pamphlet is also provided today. 30 minutes spent in review of records pertaining to this visit and including [id number] discussion with the patient and documentation of this visit. Urinary Symptoms Review - Urine output slightly over one liter - Encouraged to increase fluid intake to 2-2.5 liters Results - Urine test: 24 hr urine: Normal sodium, calcium, and oxalate levels. low urine volume - CT scan (December,): Two small kidney stones observed 05/06/24--Shelbi is a 59 year old female who is here for evaluation for nephrolithiasis. Discussed imaging, CT abd/pelvis, small bilateral kidney stones. Discussed importance of fluid hydration, and diet, low sodium decrease animal protein. Discussed further evaluation with 24 hr. urine collection. CTAP--01/07/24--tiny punctate calcifications are seen in both kidneys with the largest measuring 3.5 x 2.0 mm on the right and 2.3 mm on the left. PFSH Surgical History H/O lithotripsy History of hysterectomy Family History Father Diabetes Prostate cancer Hypertension Mother Diabetes Hypertension Cancer Family/Other Substance use disorder Mental health disorder Social History Housing: Apartment Alcohol intake: never Patient Tobacco Use Status: Never used Tobacco e-Cigarette/Vaping Use: Never Used Second Hand Smoke Exposure: No service: No Current occupational status: unemployed Cognitive needs: No Hearing needs: No Vision needs: Yes Review of Systems Const All systems reviewed & are unremarkable except as noted in HPI and below Reports no additional complaints Eyes Reports no additional complaints ENT Reports no additional complaints Card Reports no additional complaints Resp Reports no additional complaints GI Reports no additional complaints Reports as per HPI Musc Reports no additional complaints Skin/Breast Reports system reviewed and no additional complaints, except as documented Neuro Reports no additional complaints Psych Reports no additional complaints Endo Reports no additional complaints Ab/Lymph Reports no additional complaints Aller/Immun Reports no additional complaints Assessment & Plan Assessment & Plan (1) Nephrolithiasis: Code(s): N20.0 - Calculus of kidney Category: Medical (2) Bilateral kidney stones: Code(s): N20.0 - Calculus of kidney Category: Medical Plan - Increase daily fluid intake to 2-2.5 liters - Include lemon water or orange juice in diet for citrate benefits - Contact the office immediately for severe pain or if blood is visible in urine - Follow up with an ultrasound in six months Orders: Orders AMB Urinalysis Automated Today Z13.9 - Encounter for screening, unspecified US renal BI 5 Months N20.0 - Calculus of kidney Patient Instructions: The patient had an opportunity to ask questions regarding treatment plan. The patient expressed understanding and agreement with the above treatment plan. The patient is aware they should contact our office by phone for worsening of their current condition or the appearance of new symptoms. Compliance is encouraged with any medications and followup testing that is ordered. It is a privilege to be allowed the opportunity to participate in the urologic care of your patient. If you have any questions or concerns regarding treatment for the above conditions please do not hesitate to contact me. The office telephone contact is [phone]. This note is constructed in part using voice recognition software. While every effort has been made to ensure accuracy risk and insurance consultant errors may have been included. Yours sincerely, Conchita Vidal MD Scribe Plan - Not visible on output: Patient was informed and verbally consented to the use of an ambient scribe for clinic note documentation during this visit. Coding Level of Care Code Est Pt Level 4 (72135) Diagnoses Nephrolithiasis N20.0 Bilateral kidney stones N20.0
== END 2024-07-19 13:02 | disposition home or self-care (01) ==
LOC: HO.HUSH 11:21
PROVIDERS: PCP Internal Medicine; Visit Provider Urology
DX: N20.0 Calculus of kidney (principal); Z13.9 Encounter for screening, unspecified
CPT/HCPCS: 99214

== ENCOUNTER → 2024-07-19 11:20 | Outpatient (BNVA) | payer OTHER, SELFPAY | PROVIDERS: PCP Internal Medicine; Visit Provider Urology | DX: L84 Corns and callosities (principal); R73.02 Impaired glucose tolerance (oral); I10 Essential (primary) hypertension; F32.0 Major depressive disorder, single episode, mild; F41.1 Generalized anxiety disorder; E78.00 Pure hypercholesterolemia, unspecified; N20.0 Calculus of kidney | CPT/HCPCS: 81003; 96127; 99212 ==

== ENCOUNTER 2024-07-19 15:42 | Outpatient (AMB) | payer OTHER, SELFPAY ==
[2024-07-19 15:44] VITALS: BP 130/84; PULSE 116; TEMP 36.4; O2SAT 97; BMI 32.7
--- NOTE | 2024-07-19 15:44 | A.OFFPC_ITS ---
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 Accompanied by: Self / Same As Patient Allergies morphine Adverse Reaction (Severe, Verified 07/19/24 16:04) dizziness, heart palpitation tirzepatide [From Zepbound] Adverse Reaction (Intermediate, Verified 07/19/24 16:22) nausea, headache, dehydration, hair loss Medication List - Last Reconciled 07/19/24 by Angella Bauman MD atorvastatin 20 mg PO BEDTIME 90 days bupropion HCl XL 150 mg PO QAM 90 days losartan 50 mg PO DAILY 90 days omega-3 fatty acids 3,000 mg (3 x 1,000 mg) PO BID 90 days Tobacco use date assessed: 07/19/24 Dental Screening Dental Screen Date: 07/19/24 Did you have a dental visit in the last 12 months?: Yes Did you have a dental problem in the last 6 months where you did not have access to dental care?: No Was dental information given to patient?: Patient has dentist HPI HPI Comments History of Present Illness Details The patient is a 59-year-old female presenting with concerns about high blood glucose levels, currently measured at 130 mg/dL, and how to manage them effectively. She notices a trend of increasing glucose levels over time, which has heightened her desire to address this issue through lifestyle interventions. She has a previous medical history of fatty liver disease diagnosed three to four years ago. She discontinued the medication Zepbound due to side effects that included severe constipation, nausea with water intake, and significant dehydration. Additionally, she reports increased hair loss and discomfort, which she attributes to the medication. Her current cholesterol level is managed with atorvastatin, and her cholesterol profile appears stable at this time. Depression with anxiety stable with bupropion. The patient also reports dietary habits that include the consumption of sweets and high-calorie snacks, and she has expressed a willingness to modify these habits. She recalls that previously, her sugar levels were at 103 mg/dL. She denies any prior experience with metformin and was briefed about potential gastric side effects. [facility] Surgical History H/O lithotripsy History of hysterectomy Family History Father Diabetes Prostate cancer Hypertension Mother Diabetes Hypertension Cancer Family/Other Substance use disorder Mental health disorder Social History Housing: Apartment Alcohol intake: never Patient Tobacco Use Status: Never used Tobacco e-Cigarette/Vaping Use: Never Used Second Hand Smoke Exposure: No service: No Current occupational status: unemployed Cognitive needs: No Hearing needs: No Vision needs: Yes Questionnaire PHQ-9 Over the last 2 weeks, how often have you been bothered by any of the following problems? 1. Little interest or pleasure in doing things: not at all 2. Feeling down, depressed, or hopeless: not at all 3. Trouble falling or staying asleep, or sleeping too much: not at all 4. Feeling tired or having little energy: not at all 5. Poor appetite or overeating: not at all 6. Feeling bad about yourself - or that you are a failure or have let yourself or your family down: not at all 7. Trouble concentrating on things, such as reading the newspaper or watching television: not at all 8. Moving or speaking so slowly that other people could have noticed. Or the opposite - being so fidgety or restless that you have been moving around a lot more than usual: not at all 9. Thoughts that you would be better off or of hurting yourself in some way: not at all Total score: 0 Depression Screening Interpretation: Negative Depression Screening Done: Yes [id number] - PHQ-9 Billing: Yes Source: Developed by Drs. Juan Manuel Zimmerman, Saumya Bauman, Leroy Greene and colleagues, with an educational jere from [employer] Thrive Questionnaire Date Thrive assessed: 04/28/24 I am a: Patient What is your living situation today?: I choose not to answer this question Within the past 12 months, did the food you bought not last and you didn't have the money to get more?: Often true Within the past 12 months, did you worry whether your food would run out before you got money to buy more?: I choose not to answer this question Do you have trouble paying for medicines?: No Do you have trouble getting transportation to medical appointments?: No Do you have trouble paying your heating and electricity bill?: I choose not to answer this question Do you have trouble taking care of your child, family member or friend?: I choose not to answer this question Do you have trouble with day-to-day activities such as bathing, preparing meals, shopping, managing finances, etc.?: No Are you currently unemployed and looking for a job?: No Are you interested in more education?: No Please select the resources that you would like help with: None Currently or been in a relationship where the following occur: I choose not to answer THRIVE Score: 1 AUDIT C Alcohol Use Questionnaire (AUDIT-C) 1. How often do you have a drink containing alcohol?: Never 3. How often do you have six or more drinks on one occasion?: Never Total Score: 0 Score Reviewed/Action Taken: No KATHERINE-7 AMB Questionnaire KATHERINE-7 Date KATHERINE - 7 assessed: 07/19/24 Feeling nervous, anxious, or on edge: 0 = Not at all Not being able to stop or control worryin = Not at all Worrying too much about different things: 0 = Not at all Trouble relaxin = Not at all Being so restless that it is hard to sit still: 0 = Not at all Becoming easily annoyed or irritable: 0 = Not at all Feeling afraid as if something awful might happen: 0 = Not at all Total KATHERINE-7 score (0-4 normal; 5-9 mild; 10-14 moderate; 15-21 severe): 0 Source: Developed by Drs. Juan Manuel Zimmerman, Saumya Bauman, Leroy Greene and colleagues, with an educational jere from [employer]. KATHERINE-7 Assessment Billing KATHERINE-7 Assessment Tool: KATHERINE-7 Assessment 12303 Review of Systems Const All systems reviewed & are unremarkable except as noted in HPI and below ENT Denies change in voice, Denies nasal discharge and Denies sinus pain Card Denies chest pain at rest, Denies chest pain with activity, Denies edema, Denies irregular heart rhythm, Denies claudication, Denies dyspnea, Denies dyspnea on exertion, Denies orthopnea, Denies paroxysmal nocturnal dyspnea and Denies slow heart rate Resp Denies cough, Denies dyspnea and Denies dyspnea on exertion Physical exam (Primary Care) Vital Signs: Last Vital Signs Temp 97.5 F 07/19/24 15:44 Pulse 116 H 07/19/24 15:44 BP 130/84 07/19/24 15:44 Pulse Ox 97 07/19/24 15:44 Oxygen Delivery Method Room Air 07/19/24 15:44 BMI result Body Mass Index 32.7 BMI Assessment/Plan discussion: High BMI High, discussed plan: lifestyle, weight reduction, dietary and physical activity Tobacco/Smoking Status: Tobacco use Status Tobacco use date assessed 07/19/24 07/19/24 15:50 Patient Tobacco Use Status Never used Tobacco 07/19/24 15:50 e-Cigarette/Vaping Use Never Used 07/19/24 15:50 PHQ-9: PHQ-9 Score PHQ-9: Total score 0 07/19/24 15:50 Depression Screening Interpretation: Negative Thrive Assessment: Date of Thrive Assessment Date Thrive assessed 04/28/24 07/19/24 15:50 Currently or been in a relationship where the following occur: I choose not to answer Resp Effort & Inspection: normal respiratory effort Auscultation: clear to auscultation bilaterally Cardio Jugular venous distension: no JVD Rate: regular rate Rhythm: regular rhythm Heart sounds: S1 normal heart sound present and S2 normal heart sound present Extrem General: Yes full ROM Results AMB Urinalysis, Automated UA Leukoctes 0 Cherelle/uL Last Edit by Paige Alvarez on 07/19/24 15:24 UA Nitrite Negative Last Edit by Paige Alvarez on 07/19/24 15:24 UA Urobilinogen 0.2 mg/dL Last Edit by Paige Alvarez on 07/19/24 15:24 UA Protein 0 mg/dL Last Edit by Paige Alvarez on 07/19/24 15:24 UA pH 7.5 Last Edit by Paige Alvarez on 07/19/24 15:24 UA Blood 10 Yon/uL Last Edit by Paige Alvarez on 07/19/24 15:24 UA Specific [place] 1.010 Last Edit by Paige Alvarez on 07/19/24 15:24 UA Ketone Negative Last Edit by Paige Alvarez on 07/19/24 15:24 UA Bilirubin 0 mg/dL Last Edit by Paige Alvarez on 07/19/24 15:24 UA Glucose 0 mg/dL Last Edit by Paige Alvarez on 07/19/24 15:24 Coding Level of Care Code Est Pt Level 4 (88443) Complex EM visit Add On G2211 Diagnoses Callus of foot L84 Impaired glucose tolerance R73.02 Essential hypertension I10 Mild major depression F32.0 KATHERINE (generalized anxiety disorder) F41.1 Pure hypercholesterolemia E78.00 Additional Codes KATHERINE-7 Assessment Billing - KATHERINE-7 Assessment Tool: KATHERINE-7 Assessment 72354 ([id number]) PHQ-9 - 57643 - PHQ-9 Billing: Yes ([id number]) Time Spent (min) 22 Assessment & Plan Assessment & Plan (1) Callus of foot: Code(s): L84 - Corns and callosities Category: Medical (2) Impaired glucose tolerance: Code(s): R73.02 - Impaired glucose tolerance (oral) Category: Medical (3) Essential hypertension: Code(s): I10 - Essential (primary) hypertension Category: Medical (4) Mild major depression: Code(s): F32.0 - Major depressive disorder, single episode, mild Category: Medical (5) KATHERINE (generalized anxiety disorder): Code(s): F41.1 - Generalized anxiety disorder Category: Medical (6) Pure hypercholesterolemia: Code(s): E78.00 - Pure hypercholesterolemia, unspecified Category: Medical Plan The primary focus of the patient's care involves addressing her elevated blood glucose levels through lifestyle modifications and pharmacotherapy. We will initiate metformin at a low dose, administered once daily with food, to ascertain its effects on reducing glycemic levels. Lifestyle changes emphasize reducing the intake of high-calorie snacks and sweets to better manage both weight and glucose outcomes. Follow-up assessment of blood sugar levels is planned in four months to evaluate response to these interventions. The patient's liver enzymes are slightly elevated but will be monitored rather than altering the atorvastatin regimen, given current satisfactory cholesterol management. We contemplated the side effects of previous medications and advised alternative approaches to manage dehydration and digestion. A prescriptive component concerning blood pressure was also addressed in the context of holistic health maintenance. Overall, efforts were directed toward comprehensive management with a focus on preventing type 2 diabetes and maintaining adequate cholesterol and hydration levels. Patient was informed and verbally consented to the use of an ambient scribe for clinic note documentation during this visit. During my conversation with the patient, we focused primarily on managing her prediabetes. I proposed initiating metformin to help control her blood glucose levels, outlining potential side effects and ensuring that it is taken with food. The anticipated benefits were lowering both blood sugar and potential progression to diabetes. Given the patient's recent medication-related side effects, we discussed the importance of hydration and careful observation for gastrointestinal discomfort. Lifestyle adjustments were emphasized, namely reducing high-calorie food items to facilitate weight and glycemic management, supported by dietary counseling. I highlighted the need for follow-up glucose testing in four months to adjust management strategies accordingly. Additionally, I relayed the satisfactory state of her cholesterol levels whilst we monitor mild liver enzyme elevation. Overall, the patient was informed of her treatment plan and adheres to maintaining regular follow-up for ongoing care needs. Orders: Orders Lipid Panel 4 Months E78.5 - Hyperlipidemia, unspecified Comprehensive [place]. Panel Fast 4 Months R73.02 - Impaired glucose tolerance (oral) Referrals Podiatry Referral L84 - Corns and callosities Medications: New [pill box] As directed 1 ea 0RF E78.00 - Pure hypercholesterolemia, unspecified, F32.0 - Major depressive disorder, single episode, mild, F41.1 - Generalized anxiety disorder, I10 - Essential (primary) hypertension, R73.02 - Impaired glucose tolerance (oral) metformin 500 mg PO DAILY 90 days 90 tabs 1RF blood pressure test kit-large As directed 1 ea 0RF I10 - Essential (primary) hypertension Patient Instructions: - Begin metformin once a day with food to minimize stomach discomfort. - Reduce intake of sweets and high-calorie snacks to help manage blood glucose. - Stay hydrated, despite previous difficulties with water intake. - Watch for any changes in how you feel, especially regarding stomach or hair issues. - Plan for a follow-up blood glucose test in four months. - Expect a phone call regarding blood pressure management as discussed. - Maintain regular follow-up appointments for monitoring.
== END 2024-07-19 16:19 | disposition home or self-care (01) ==
LOC: HO.HMCH 15:42
PROVIDERS: PCP Internal Medicine; Visit Provider Internal Medicine
DX: L84 Corns and callosities (principal); R73.02 Impaired glucose tolerance (oral); I10 Essential (primary) hypertension; F32.0 Major depressive disorder, single episode, mild; F41.1 Generalized anxiety disorder; E78.00 Pure hypercholesterolemia, unspecified

== ENCOUNTER 2024-08-19 14:40 | Outpatient (AMB) | payer OTHER, SELFPAY ==
[2024-08-19 15:10] VITALS: BP 134/72; PULSE 100; BMI 33.3
--- NOTE | 2024-08-19 15:10 | A.OFFVIS_ITS ---
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 Allergies morphine Adverse Reaction (Severe, Verified 08/19/24 15:14) dizziness, heart palpitation tirzepatide [From Zepbound] Adverse Reaction (Intermediate, Verified 08/19/24 15:14) nausea, headache, dehydration, hair loss Medication List - Last Reconciled 08/19/24 by Amanda Henry NP-C atorvastatin 20 mg PO BEDTIME 90 days blood pressure test kit-large As directed bupropion HCl XL 150 mg PO QAM 90 days losartan 50 mg PO DAILY 90 days metformin 500 mg PO DAILY 90 days omega-3 fatty acids 3,000 mg (3 x 1,000 mg) PO BID 90 days omega-3 fatty acids-fish oil 300-1,000 mg caps PO [pill box As directed] HPI HPI 4 mth f/up: Details: Shelbi is a 59-year-old female with past medical history of hypertension, hyperl ipidemia who was recently reported heart palpitations and cardiac evaluation showed sinus tachycardia. She was instructed on caffeine reduction and she now presents for follow-up. Today she reports that she has not been bothered as much by rapid heartbeats. She does not notice it throughout the day. She is still very active each day and does not sit down to rest much. She has not had any dizziness, presyncope, syncope, falls. No chest discomfort at rest or with activity. No shortness of breath, PND, orthopnea or edema. She drinks 1 caffeinated coffee per day and cut down her intake of dark chocolate in the evenings. is present and he is assisting with Latvian translation at their request. [facility] Surgical History H/O lithotripsy History of hysterectomy Family History Father Diabetes Prostate cancer Hypertension Mother Diabetes Hypertension Cancer Family/Other Substance use disorder Mental health disorder Social History Housing: Apartment Alcohol intake: never Patient Tobacco Use Status: Never used Tobacco e-Cigarette/Vaping Use: Never Used Second Hand Smoke Exposure: No service: No Current occupational status: unemployed Cognitive needs: No Hearing needs: No Vision needs: Yes Review of Systems Const All systems reviewed & are unremarkable except as noted in HPI and below ENT Denies dizziness Card Denies chest pain, Denies chest pain at rest, Denies chest pain with activity, Denies rapid heart rate, Denies pedal edema, Denies edema, Denies leg edema, Denies lightheadedness, Denies palpitations, Denies dyspnea, Denies dyspnea on exertion and Denies orthopnea Resp Denies cough, Denies dyspnea and Denies dyspnea on exertion GI Denies hematochezia and Denies change in stool character Musc Denies abnormal gait, Denies limited range of motion, Denies muscle cramps, Denies muscle weakness, Denies numbness, Denies radiating pain into limb, Denies stiffness and Denies tingling Neuro Denies abnormal gait, Denies dizziness, Denies numbness and Denies tingling Endo Denies palpitations Physical Exam Vital Signs: Last Vital Signs Pulse 100 08/19/24 15:10 BP 134/72 08/19/24 15:10 BMI result Body Mass Index 33.3 Const General: cooperative, healthy appearing, comfortable and no acute distress Orientation/consciousness: patient oriented x3 Neck Neck: Yes normal visual inspection and Yes no JVD Resp Effort & Inspection: normal respiratory effort Auscultation: clear to auscultation bilaterally, no crackles, no rales, no rhonchi and no wheezes Cardio Jugular venous distension: no JVD Rate: regular rate Rhythm: regular rhythm Heart sounds: S1 normal heart sound present, S2 normal heart sound present, no murmurs and no rubs Neuro General: patient oriented x3 Extrem General: Yes normal to inspection, No no pedal edema and No calf tenderness Psych Appearance: grossly normal Mental Status: mental status grossly normal Speech and movement: Normal speech and movement present Assessment & Plan Assessment & Plan (1) Palpitations: Code(s): R00.2 - Palpitations Category: Medical Plan: Reports of heart palpitations like her heart is beating fast with cardiac testing showing sinus tachycardia. Her symptoms were worse when she was taking p.o. minoxidil which she is now off of. Holter monitor was done on 03/01/2024 for 2 days showing sinus rhythm with average heart rate 104, sinus tach 53% of the time greater than 100. An echocardiogram done 03/01/2024 showed EF 56%, grade 1 diastolic dysfunction and no valve abnormalities. Labs done 10/24/2023 showed TSH 1.11. She had been eating dark chocolate most nights which she did stop. Currently palpitations have improved. Her heart rate initially this visit was 100, recheck done by me using sat monitor while sitting near end of visit was 95. Reviewed maintaining good hydration, getting adequate rest, physical activity as tolerated. Limit caffeine beverages to 1 per day and consider decaf. Reviewed the possibility of starting medication to slow her heart rate and since it would be a new daily medication she declines it this time. Cardiology follow-up in 1 year sooner if needed. (2) Sinus tachycardia: Code(s): R00.0 - Tachycardia, unspecified Category: Medical Plan: As above. EF is normal. (3) Essential hypertension: Code(s): I10 - Essential (primary) hypertension Category: Medical Plan: Blood pressure goal less than 130/80, near goal at this time. No medication changes made. Continue losartan. Plan Time spent on chart review, documentation, interview and assessment Patient Instructions: - Continue taking losartan daily as prescribed. - Monitor blood pressure periodically at home. - Limit caffeine intake, including coffee and chocolate. - Maintain physical activity levels as tolerated. - Follow up within a year or sooner if symptoms of palpitations persist or worsen. - Seek medical attention if experiencing significant dizziness or sharp increase in heart rate. Coding Level of Care Code Est Pt Level 4 (48486) Complex EM visit Add On G2211 Diagnoses Palpitations R00.2 Sinus tachycardia R00.0 Essential hypertension I10 Time Spent (min) 28
== END 2024-08-19 15:58 | disposition home or self-care (01) ==
LOC: HO.HCS 14:41
PROVIDERS: PCP Internal Medicine; Visit Provider Nurse Practitioner Family
DX: R00.2 Palpitations (principal); R00.0 Tachycardia, unspecified; I10 Essential (primary) hypertension
CPT/HCPCS: 99214; G2211

== ENCOUNTER → 2024-08-19 14:40 | Outpatient (BNVA) | payer OTHER, SELFPAY | PROVIDERS: PCP Internal Medicine; Visit Provider Nurse Practitioner Family | DX: R00.2 Palpitations (principal); R00.0 Tachycardia, unspecified; I10 Essential (primary) hypertension | CPT/HCPCS: 99212 ==

== ENCOUNTER 2024-11-19 13:49 | Outpatient (REF) | payer OTHER, SELFPAY | END 2024-11-19 13:50 | disposition home or self-care (01) | LOC: HO.MAMMO 13:49 | PROVIDERS: PCP Internal Medicine; Visit Provider Internal Medicine | DX: Z12.31 Encounter for screening mammogram for malignant neoplasm of breast (principal) | CPT/HCPCS: 77063; 77067 ==

== ENCOUNTER → 2024-11-19 14:00 | Outpatient (BNV) | payer OTHER, SELFPAY | PROVIDERS: PCP Internal Medicine; Visit Provider Internal Medicine | DX: Z12.31 Encounter for screening mammogram for malignant neoplasm of breast (principal) | CPT/HCPCS: 77063; 77067 ==

== ENCOUNTER 2025-01-03 12:15 | Outpatient (REF) | payer OTHER, SELFPAY ==
--- NOTE | ~2025-01-03 | US_ITS ---
EXAMINATION: US KIDNEY BILATERAL HISTORY: N20.0 - Calculus of kidney TECHNIQUE: Real-time grayscale ultrasound imaging of the kidneys was performed and images were reviewed. COMPARISON: Comparison is made with the prior examination dated 10/24/2023. FINDINGS: Right kidney: The right kidney measures 10.6 x 4.4 x 5.3 cm. Renal parenchymal echotexture and thickness are normal. There are no masses. There is a 5 x 4 x 5 mm nonobstructing calculus at the lower pole. There is no hydronephrosis. Left Kidney: The left kidney measures 10.7 x 4.8 x 5.5 cm. Renal parenchymal echotexture and thickness are normal. There are no masses. There is a 5 x 4 x 5 mm nonobstructing calculus at the lower pole. No hydronephrosis. US/US renal BI IMPRESSION: Bilateral nephrolithiasis as described. Electronically signed by: Juan Manuel Dixon MD 01/03/2025 01:55 PM EDT
== END 2025-01-03 12:16 | disposition home or self-care (01) ==
LOC: HO.US 12:15
PROVIDERS: PCP Internal Medicine; Visit Provider Urology
DX: N20.0 Calculus of kidney (principal)
CPT/HCPCS: 76775

== ENCOUNTER → 2025-01-03 12:18 | Outpatient (BNV) | payer OTHER, SELFPAY | PROVIDERS: PCP Internal Medicine; Visit Provider Radiology Diagnostic Radiology | DX: N20.0 Calculus of kidney (principal) | CPT/HCPCS: 76775 ==

== ENCOUNTER 2025-01-14 12:35 | Outpatient (AMB) | payer OTHER, SELFPAY ==
--- NOTE | 2025-01-14 12:57 | A.OFFVIS_ITS ---
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 Follow-up renal ultrasound 01/03/25 is a 5 mm stone both kidneys. History of Present Illness The patient is a 59-year-old female presenting with nephrolithiasis. She has a history of kidney stones, with the most recent follow-up renal ultrasound on 01/03/25 revealing a 5-mm stone in both kidneys. The stones are at a size where they can be treated to break them into smaller fragments for easier passage through urination. The patient has previously undergone a similar procedure involving shock wave lithotripsy in [place]. She reports an allergy to morphine, which is documented in her medical records. Results - Renal ultrasound on 01/03/25: 5-mm stone in both kidneys Plan 1. Bilateral Nephrolithiasis - Plan to treat the stones with shock wave lithotripsy to break them into smaller fragments for easier passage. - 5 mm lower pole right and left kidney loswe pole. Start with Right ESWL - Procedure will be conducted under anesthesia as a day procedure, with follow- up imaging to assess stone clearance. 07/19/24-- 59-year-old female presenting with nephrolithiasis. Discussed 24 hour urine results collected: 06/26/24 Total volume 1.18 L, Calcium 147 mg; Oxalate 31 mg, Citrate 495 mg, Sodium 101. Instructed on importance of fluid intake.I have discussed diet modification to decrease risk of forming more kidney stones. I have discussed low oxalate diet and specific foods to avoid including certain green leafy vegetables, chocalate, nuts, tea, beets, rubarb; low sodium, decreased use of animal protein and the importance of hydration drinking up to 2-2.5 liters of fluids and use of adding lemon to water to increase citrate in the diet. A pamphlet is also provided today. 30 minutes spent in review of records pertaining to this visit and including [id number] discussion with the patient and documentation of this visit. Urinary Symptoms Review - Urine output slightly over one liter - Encouraged to increase fluid intake to 2-2.5 liters Results - Urine test: 24 hr urine: Normal sodium, calcium, and oxalate levels. low urine volume - CT scan (December,): Two small kidney stones observed 05/06/24--Shelbi is a 59 year old female who is here for evaluation for nep hrolithiasis. Discussed imaging, CT abd/pelvis, small bilateral kidney stones. Discussed importance of fluid hydration, and diet, low sodium decrease animal protein. Discussed further evaluation with 24 hr. urine collection. CTAP--01/07/24--tiny punctate calcifications are seen in both kidneys with the largest measuring 3.5 x 2.0 mm on the right and 2.3 mm on the left. PFSH Surgical History H/O lithotripsy History of hysterectomy Family History Father Diabetes Prostate cancer Hypertension Mother Diabetes Hypertension Cancer Family/Other Substance use disorder Mental health disorder Social History Housing: Apartment Alcohol intake: never Patient Tobacco Use Status: Never used Tobacco e-Cigarette/Vaping Use: Never Used Second Hand Smoke Exposure: No service: No Current occupational status: unemployed Cognitive needs: No Hearing needs: No Vision needs: Yes Review of Systems Const All systems reviewed & are unremarkable except as noted in HPI and below Reports no additional complaints Eyes Reports no additional complaints ENT Reports no additional complaints Card Reports no additional complaints Resp Reports no additional complaints GI Reports no additional complaints Reports as per HPI Musc Reports no additional complaints Skin/Breast Reports system reviewed and no additional complaints, except as documented Neuro Reports no additional complaints Psych Reports no additional complaints Endo Reports no additional complaints Ab/Lymph Reports no additional complaints Aller/Immun Reports no additional complaints Results AMB Urinalysis, Automated UA Leukoctes 0 Cherelle/uL Last Edit by Paige Alvarez on 01/14/25 16:03 UA Nitrite Negative Last Edit by Paige Alvarez on 01/14/25 16:03 UA Urobilinogen 3.5 mg/dL Last Edit by Paige Alvarez on 01/14/25 16:03 UA Protein 15 mg/dL Last Edit by Paige Antonio on 01/14/25 16:03 UA pH 6.0 Last Edit by Paige Alvarez on 01/14/25 16:03 UA Blood 25 Yon/uL Last Edit by Paige Antonio on 01/14/25 16:03 UA Specific [place] 1.020 Last Edit by Paige Alvarez on 01/14/25 16:03 UA Ketone Negative Last Edit by Paige Alvarez on 01/14/25 16:03 UA Bilirubin 0 mg/dL Last Edit by Paige Alvarez on 01/14/25 16:03 UA Glucose 0 mg/dL Last Edit by Paige Antonio on 01/14/25 16:03 Results Reviewed Results Reviewed: Laboratory Last Values Urine pH (Auto) 6.0 01/14/25 15:20 Specific [place] (Auto) 1.020 01/14/25 15:20 Urine Protein (Auto) 15 mg/dL 01/14/25 15:20 Glucose (UA)(Auto) 0 mg/dL 01/14/25 15:20 Urine Ketones (Auto) Negative 01/14/25 15:20 Urine Blood (Auto) 25 Yon/uL 01/14/25 15:20 Urine Nitrite (Auto) Negative 01/14/25 15:20 Urine Bilirubin (Auto) 0 mg/dL 01/14/25 15:20 Urine Urobilinogen (Auto) 3.5 mg/dL 01/14/25 15:20 Leukocyte Esterase (Auto) 0 Cherelle/uL 01/14/25 15:20 Date of Service: 01/03/25 EXAMINATION: US KIDNEY BILATERAL HISTORY: N20.0 - Calculus of kidney TECHNIQUE: Real-time grayscale ultrasound imaging of the kidneys was performed and images were reviewed. COMPARISON: Comparison is made with the prior examination dated 10/24/2023. FINDINGS: Right kidney: The right kidney measures 10.6 x 4.4 x 5.3 cm. Renal parenchymal echotexture and thickness are normal. There are no masses. There is a 5 x 4 x 5 mm nonobstructing calculus at the lower pole. There is no hydronephrosis. Left Kidney: The left kidney measures 10.7 x 4.8 x 5.5 cm. Renal parenchymal echotexture and thickness are normal. There are no masses. There is a 5 x 4 x 5 mm nonobstructing calculus at the lower pole. No hydronephrosis. Date of Service: 01/07/24 CT ABDOMEN WITHOUT CONTRAST CLINICAL INFORMATION: Calculus of kidney. COMPARISON: None available. TECHNIQUE: Contiguous axial thin section helical images of the abdomen were performed without intravenous contrast. The data set was reformatted in the coronal and sagittal planes and reviewed on an independent workstation. This CT examination was performed using dose optimization techniques as appropriate, variously including the following: *Automated exposure control *Adjustment of mA and/or kV according to patient size (this includes techniques or standardized protocols for targeted exams where dose is matched to indication/reason for exam; i.e. extremities or head) *Use of iterative reconstruction technique DLP: 326 mGy-cm FINDINGS: LUNG BASES: The visualized lung bases are unremarkable. LIVER, GALLBLADDER, AND BILIARY TREE: The liver is normal in size, shape, and attenuation. No focal hepatic lesion or biliary ductal dilatation is present. The gallbladder is unremarkable with no evidence of radiopaque gallstones, gallbladder wall thickening, or obvious pericholecystic inflammatory changes. PANCREAS: Unremarkable. SPLEEN: Unremarkable. ADRENAL GLANDS: Unremarkable. KIDNEYS AND URETERS: The kidneys are normal in size, shape, and attenuation. Some tiny punctate calcifications are seen in both kidneys with the largest measuring 3.5 x 2.0 mm on the right and 2.3 mm on the left. There is some minimal areas of hyperattenuation in the medullary regions of the kidneys. No hydronephrosis, hydroureter, or ureteral calculi seen. No perinephric stranding. GASTROINTESTINAL TRACT: The visualized small and large bowel are unremarkable. The appendix is unremarkable. ABDOMINAL WALL: No significant hernia is appreciated. LYMPH NODES: No retroperitoneal lymphadenopathy. VASCULAR: Unremarkable. OSSEOUS STRUCTURES: Unremarkable. There is minimal retrolisthesis of L2 upon L3. IMPRESSION: Bilateral tiny nonobstructing renal calculi. Assessment & Plan Assessment & Plan (1) Nephrolithiasis: Code(s): N20.0 - Calculus of kidney Category: Medical (2) Bilateral kidney stones: Code(s): N20.0 - Calculus of kidney Category: Medical Plan Right ESWL Orders: Orders AMB Urinalysis Automated 01/14/25 N20.0 - Calculus of kidney Patient Instructions: The patient had an opportunity to ask questions regarding treatment plan. The patient expressed understanding and agreement with the above treatment plan. The patient is aware they should contact our office by phone for worsening of their current condition or the appearance of new symptoms. Compliance is encouraged with any medications and followup testing that is ordered. It is a privilege to be allowed the opportunity to participate in the urologic care of your patient. If you have any questions or concerns regarding treatment for the above conditions please do not hesitate to contact me. The office telephone contact is [phone]. This note is constructed in part using voice recognition software. While every effort has been made to ensure accuracy electric refrigerator preparer errors may have been i ncluded. Yours sincerely, Conchita Vidal MD Scribe Plan - Not visible on output: Patient was informed and verbally consented to the use of an ambient scribe for clinic note documentation during this visit. Coding Level of Care Code Est Pt Level 4 (83992) Diagnoses Nephrolithiasis N20.0 Bilateral kidney stones N20.0
--- OUTSIDE RECORDS SUMMARY | 2025-01-14 14:07 | XMS_ITS | Clinical Summary ---
Author Organization 175 [facility] Address [address] [place] [address] Phone Care Team Providers Care Accounts Specialist Name Role Phone Unavailable Primary Care Provider Unavailabl e Social History Tobacco Use Types Packs/Day Years Used Date Smoking Tobacco: Never Assessed Comments Unknown Sex and Gender Information Value Date Recorded Sex Assigned at Not on file Legal Sex Female 11:10 AM EDT Gender Identity Not on file Sexual Orientation Not on file Plan of Treatment Upcoming Encounters Date Type Department Care Team ([facility] Contact Info) Description 01/18/2025 1:45 PM EDT Consult Orthopedic Surgery - [place] [address] [phone] Josue Cadet DPM [address] [address] Health Maintenance Due Date Last Done Comments Breast Cancer Screening 1965 DTaP,Tdap,and Td Vaccines (1 - Tdap) 1983 Cervical Cancer Screening: P ap Smear 1985 Pneumococcal Vaccine: 50+ Ye ars (1 of 1 - PCV) 2014 Zoster Vaccines (1 of 2) 2014 Depression Screening 04/21/2024 Colorectal Cancer Screening: Colonoscopy 08/21/2024 HIV Screening 08/21/2024 Hepatitis C Screening 08/21/2024 Social Influencers of Health Screening 08/21/2024 COVID-19 Vaccine (1 - 2023-2 5 season) 2024 Influenza Vaccine (#1) 2024 RSV Immunization Adult Patie nts (1 - 1-dose 75+ series) 2039 HIB Vaccines Aged Out No longer eligi ble based on patient's age to complete this topic HPV Vaccines Aged Out No longer eligi ble based on patient's age to complete this topic Hepatitis A Vaccines Aged Out No long er eligible based on patient's age to complete this topic Hepatitis B Vaccines Aged Out No long er eligible based on patient's age to complete this topic IPV Vaccines Aged Out No longer eligi ble based on patient's age to complete this topic MMR Vaccines Aged Out No longer eligi ble based on patient's age to complete this topic Meningococcal ACWY Vaccine Aged Out N o longer eligible based on patient's age to complete this topic Meningococcal B Vaccine Aged Out No l onger eligible based on patient's age to complete this topic RSV Immunization Patients Un angel 20 months Aged Out No longer eligible b ased on patient's age to complete this topic Varicella Vaccines Aged Out No longer eligible based on patient's age to complete this topic Insurance [facility] Member Subscriber Plan / Payer (Ef fective 2023-Present) Name:SHELBI ROSS Relation to Subscriber:Self Name:Shelbi Ross Payer ID:[id number] Group ID:[id number] Type:Not on file Address: [facility] [address] [id number]
== END 2025-01-14 13:35 | disposition home or self-care (01) ==
LOC: HO.HUSH 12:36
PROVIDERS: PCP Internal Medicine; Visit Provider Urology
DX: N20.0 Calculus of kidney (principal)
CPT/HCPCS: 99214

== ENCOUNTER → 2025-01-14 12:35 | Outpatient (BNVA) | payer OTHER, SELFPAY | PROVIDERS: PCP Internal Medicine; Visit Provider Urology | DX: N20.0 Calculus of kidney (principal) | CPT/HCPCS: 81003; 99212 ==

== ENCOUNTER 2025-02-05 15:57 | Emergency (ER) | payer OTHER, SELFPAY ==
--- OUTSIDE RECORDS SUMMARY | 2025-02-02 13:15 | XMS_ITS | Encounter Summary ---
Author Organization [facility] Address [address] [place] [address] Care Team Providers Care Mending Carrier Name Role Phone Unavailable Primary Care Provider Unavailabl e Reason for Visit * Reason Comments Foot Pain Metatarsalgia of rig ht footHammertoes of both feetPain in both feet Encounter Details Date Type Department Care Team (Late st Contact Info) Description 02/02/2025 1:15 PM EDT Office Visit Orthopedic Surgery - [place] [phone] [facility] [address] [place] [phone] Josue Cadet DPM [address] [facility] [address] [address] Pain in both feet (Primary Dx); Metatarsalgia of right foot; Hammertoes of both feet Social History Tobacco Use Types Packs/Day Years Used Date Smoking Tobacco: Never Assessed Comments Unknown Sex and Gender Information Value Date Recorded Sex Assigned at Not on file Legal Sex Female 11:10 AM EDT Gender Identity Not on file Sexual Orientation Not on file documented as of this encounter Progress Notes * Josue Cadet DPM - 02/02/2025 1:15 PM EDT Referring MD: charity Last PCP visit: 11/12/2024 IDENTIFIER: Marky Gill is a 59 y.o. year old female who presents for consultation. CC: Bilateral foot pain HPI: 59-year-old female returns office chief complaint of right foot pain. Patient notes that she had heneeds to have callus ration to the submetatarsal 2 position. Patient notes that she has been havingsome pain over the fifth digits of bilateral feet as well. Patient would like to discuss other options for treatment. Patient did receive the ammonium lactate but notes that it is only for dry skin and does not help specifically her callus ROS: GENERAL: Pt denies nausea, fever, vomiting, chills, or shortness of breath. Pt in NAD. CARDIOLOGY: pt denies chest pain, palpitations LUNGS: pt denies shortness of breath MUSCULOSKELETAL: See HPI, otherwise no joint pain or swelling, back pain, or muscle pain. SKIN: see HPI, otherwise no lesions, rash or itching NEURO: No persistent headache, weakness or numbness The remainder of the review of systems is noncontributory PAST MEDICAL HISTORY: Problem List[1] SOCIAL HISTORY: Social History Tobacco Use Smoking status: Not on file Smokeless tobacco: Not on file Substance Use Topics Alcohol use: Not on file ACTIVE MEDICATIONS: Medications Taking[2] ALLERGIES: Morphine and Tirzepatide PHYSICAL EXAM: There were no vitals taken for this visit. PODIATRIC EXAMINATION: GENERAL: Patient appears well nourished, with NAD. VASCULAR: Dorsalis pedis pulses are 2/4 bilaterally and Posterior tibial pulses are 2/4 bilaterally. Capillary filling time within normal limits the digits. No pallor on elevation or rubor on dependency. Positive hair growth. No varicosities. Denies rest pain or claudication pain. NEUROLOGICAL: Sharp/dull sensation intact, protective sensation intact 10/10 with 5.07 semmes porfirio bilaterally, vibratory sensation with tuning fork intact to the tibial tuberosity. ORTHOPEDIC: Good muscle strength 5/5 of all flexors and extensors. Dorsi flexion of ankle ,10 degrees, plantar flexion WNL. No muscle atrophy. Increased hammertoe contractures to bilateral feet. Notable pain to the submetatarsal 2 position of the right foot. Contracture with increased pain on palpation of the PIPJ to the left fifth toe DERMATOLOGICAL:.No masses or skin lesions noted. Normal skin temperature, normal skin turgor. Multiple callus formations of the feet bilaterally BIOMECHANICS: STJ ROM wnl, MTJ ROM wnl, 1st MPJ ROM wnl. IMPRESSION: 1. Pain in both feet 2. Metatarsalgia of right foot 3. Hammertoes of both feet PLAN: Pt was seen and examined, history reviewed. Patient was reeducated on the findings associated with the callus formation to the right foot. Patient was educated on conservative versus surgical therapy. Patient understands that conservative therapy includes using a metatarsal pad daily for all ambulatory activity to limit pressure to the submetatarsal 2 position. Patient was reeducated on the biomechanics associated with her problem. Was educated on surgical intervention to the contracture of the digits which would reduce the retrograde pressure on the metatarsal head and the callus ration to the submetatarsal 2 position. Patientunderstands that part of her problem is secondary to having elongated second metatarsal and some part of the problem is the dorsiflexion contracture of the second digit. Patient was educated on postoperative timeframe and what would be included in surgery and healing and weightbearing. Patient understands the risks and benefits of surgery. Questions were asked and answered to her satisfaction. Start using a pad for the next 8 weeks and will return at that time for possible concern consideration for surgical intervention if she is unhappy with the conservative treatment Josue Cadet DPM [1] There is no problem list on file for this patient. [2] No outpatient medications have been marked as taking for the 02/02/25 encounter (Office Visit) withJosue Cadet DPM. documented in this encounter Plan of Treatment Upcoming Encounters Date Type Department Care Team ([facility] st Contact Info) Description 04/04/2025 1:15 PM EST Office Visit Orthopedic Surgery - [place] [address] [phone] Josue Cadet DPM [address] [address] documented as of this encounter Visit Diagnoses Diagnosis Pain in both feet- Primary Metatarsalgia of right foot Hammertoes of both feet documented in this encounter
--- NOTE | ~2025-02-05 | CT_ITS ---
CLINICAL HISTORY: LLQ Pain Tenderness CT abdomen and pelvis with contrast Comparison: CT/CA/SR - CT ABDOMEN WO IV CON - 01/07/24 16:57 EDT Findings: CT abdomen: Minor dependent atelectasis within the right lower lobe. No pleural effusion or pneumothorax. No acute bony abnormality. Low-attenuation throughout the liver is indicative of fatty infiltration. No focal hepatic lesion. Main portal vein is patent. Spleen, pancreas, gallbladder, and adrenal glands are unremarkable. Symmetric enhancement of the kidneys without mass or hydronephrosis. Small stone seen on prior study are not well depicted on this post-contrast exam. No perinephric stranding. Moderate ingested contents within the stomach. No dilated small bowel. No free fluid or free air. CT pelvis: Appendix is normal. Focal inflammatory stranding adjacent to a lateral diverticulum within the proximal sigmoid colon in the left lower quadrant. Small amount of fluid in the left pericolic gutter. No focal fluid collection to suggest abscess. No free air. No obstructive phenomenon. Urinary bladder is moderately distended. Uterus is surgically absent. No adnexal masses. IMPRESSION: 1. Sigmoid diverticulitis. No abscess, perforation, or obstruction identified. 2. Negative CT of the appendix. This document has been electronically signed by: Sal Robledo MD on 02/06/2025 00:52:36
--- NOTE | ~2025-02-05 | XR_ITS ---
CLINICAL HISTORY: chest pain Exam: PA and lateral views of the chest. Comparison: CT of the abdomen january 07, 2024. Findings: Mild hypoinflation. Heart size and pulmonary vasculature are within normal limits. No focal areas of consolidation. No pleural effusion or pneumothorax. Impression: Hypoinflation without acute infiltrate. This document has been electronically signed by: Sal Robledo MD on 02/05/2025 17:16:09
--- NOTE | 2025-02-05 15:59 | ECG_ITS ---
Test Reason : CHEST PAIN Blood Pressure : */* mmHG Vent. Rate : 110 BPM Atrial Rate : 110 BPM P-R Int : 134 ms QRS Dur : 86 ms QT Int : 330 ms P-R-T Axes : 32 260 15 degrees QTcB Int : 446 ms Sinus tachycardia Right superior axis deviation Right ventricular hypertrophy Abnormal ECG When compared with ECG of 26-Jun-2024 15:01, No significant change was found Referred By: Ann Maynard Electronically Signed By: Ja Goss
[2025-02-05 16:20] VITALS: BP 122/82; PULSE 106; RESP 18; TEMP 36.6; O2SAT 94; BMI 29.3
--- NOTE | 2025-02-05 16:20 | ED.GENADULT ---
HPI - General Adult General Chief complaint: Abdominal Pain Stated complaint: abd pain/chest Time Seen by Provider: 02/05/25 21:47 Source: patient Mode of arrival: ambulatory Limitations: language barrier (Computer Teacher services utilized) History of Present Illness ED Provider: Jonny PRATHER HPI narrative: The patient is a 59-year-old female with a history of fibromyalgia, nephrolithiasis, anxiety, depression, hypertension, and hyperlipidemia, presenting to the ED for evaluation of left lower quadrant abdominal pain which began yesterday morning, with subsequent radiation into the left flank and chest. The patient denies associated fever/chills, nausea, vomiting, hematuria, hematochezia, melena, constipation, diarrhea, dysuria, shortness of breath, pleurisy, or other acute somatic complaint. The patient initially reported dysuria in the triage process but denies any dysuria to this provider via payroll specialist. The patient reports history of hysterectomy with bilateral oophorectomy 8 years ago due to large cysts, no history of cancer. Patient denies other surgical abdominal history. The patient reports she was diagnosed with bilateral nephrolithiasis in December by her urologist. Patient was in the process of preauthorization for lithotripsy, authorization came through however the patient's advises they are urologist is now on a family emergency leave, and the patient will not be able to undergo lithotripsy for the next 2 weeks. The patient reports remote history of lithotripsy in [place] many years ago. Related Data Home Medications ?Medication ?Instructions ?Recorded ?Confirmed omega-3 fatty acids-fish oil 300 cap PO 08/19/24 08/19/24 mg-1,000 mg capsule Previous Rx's ?Medication ?Instructions ?Recorded omega-3 fatty acids 1,000 mg 3,000 mg (3 x 1,000 mg) PO BID 90 11/20/23 capsule days #540 caps blood pressure test kit-large #1 ea 07/19/24 pill box #1 ea 07/19/24 bupropion HCl 150 mg 24 hr tablet, 150 mg PO QAM 90 days #90 tabs 10/14/24 extended release metformin 500 mg tablet 500 mg PO DAILY 90 days #90 tabs 12/29/24 atorvastatin 20 mg tablet 20 mg PO BEDTIME 90 days #90 tabs 01/28/25 losartan 50 mg tablet 50 mg PO DAILY 90 days #90 tabs 01/31/25 amoxicillin 875 mg-potassium 1 tab PO TID #30 tabs 02/06/25 clavulanate 125 mg tablet Allergies Allergy/AdvReac Type Severity Reaction Status Date / Time aspirin Allergy Blurry Verified 02/05/25 16:22 Vision morphine AdvReac Severe dizziness, Verified 01/14/25 12:57 heart palpitation tirzepatide (From Zepbound) AdvReac Intermediate nausea, Verified 01/14/25 12:57 headache, dehydration, hair loss Review of Systems Review of Systems: Yes all other systems are reviewed and are negative FOR[facility]LY [facility] Past Medical History Surgical History H/O lithotripsy History of hysterectomy Family History Family History Father Diabetes Prostate cancer Hypertension Mother Diabetes Hypertension Cancer Family/Other Substance use disorder Mental health disorder Social History Social History Housing: Apartment Alcohol intake: never Patient Tobacco Use Status: Never used Tobacco Smoked in Last 30 Days: No e-Cigarette/Vaping Use: Never Used Second Hand Smoke Exposure: No Use of substances other than those prescribed or required for medical reasons: No Advance Directives: No Advance Directives Information Provided: No Patient : No service: No Current occupational status: unemployed Cognitive needs: No Hearing needs: No Vision needs: Yes Physical Exam ED Vital Signs: Vital Signs - 24 hr 02/05/25 16:20 02/05/25 21:34 Temperature 97.8 F 97.8 F Pulse Rate 106 H 95 Respiratory Rate 18 19 Blood Pressure 122/82 142/75 H Pulse Oximetry 94 97 Oxygen Delivery Method Room Air Room Air BMI result Body Mass Index 29.3 CONSTITUTIONAL: The patient appears non-toxic, well nourished and in no acute distress. Vital signs as documented. HEAD: Atraumatic, normocephalic. EYES: EOMs grossly intact, pupils equal, conjunctiva clear, no exudate. ENT: Nares patent, no discharge. Airway patent, no audible stridor, visible mucosa is pink and moist without noted lesions. NECK: Trachea is midline, no obvious masses or gross abnormalities. CHEST: Symmetric movement, normal appearance. LUNGS: LS present and CTAB, no w/r/r. Non-labored work of breathing. CARDIAC: Regular Rhythm, S1/S2 appreciated, no murmurs, rubs or gallops. ABDOMEN: Abdomen soft x4 quadrants, positive tenderness to palpation of the left lower quadrant, negative rebound. Equivocal CVAT on the left. No palpable masses or organomegaly. : Deferred. EXTREMITIES: Normal tone, moves all extremities spontaneously without reported pain. No obvious acute injury or deformity noted. NEURO: Alert and oriented x3, CN II-XII appear grossly intact. Cerebellar Functioning grossly intact. No obvious sensory or motor deficits. Speech clear and appropriate. PSYCH: normal affect, appropriate eye contact, fluid speech, with appropriate response to questioning. No reported suicidality or homicidality. SKIN: Warm, dry, color appropriate, normal turgor. No rashes noted. Course Course Course Narrative: This is a rapid medical exam performed by Vidal Maynard NP: Additional HPI, ROS, PE not included below will be deferred to primary provider. Patient is a 59y/o Mosotho speaking female presenting with complaint of left sided abdominal pain and right sided chest pain since yesterday. Reports dysuria, feels like she is not completely emptying her bladder. Plan: EKG, labs, cxr Medications Administered Discontinued Medications Generic Name Dose Route Start Last Admin Trade Name Freq PRN Reason Stop Dose Admin Iohexol 100 ml 02/06/25 00:03 02/06/25 00:04 Iohexol 350 Mg/Ml 100 Ml Infus..Btl IV 02/06/25 00:04 85 ml ONCE ONE Administration Ketorolac Tromethamine 15 mg 02/05/25 23:13 02/05/25 23:35 Ketorolac Tromethamine 15 Mg/Ml Vial IVPUSH 02/05/25 23:14 15 mg ONCE ONE Administration Medical Decision Making Medical Decision Making [facility] Narrative: 10:31 PM 02/05/2025 (Keyur PRATHER): The patient is a 59-year-old female with a history of fibromyalgia, nephrolithiasis, anxiety, depression, hypertension, and hyperlipidemia, presenting to the ED for evaluation of left lower quadrant abdominal pain which began yesterday morning, with subsequent radiation into the left flank and chest. The patient denies associated fever/chills, nausea, vomiting, hematuria, hematochezia, melena, constipation, diarrhea, dysuria, shortness of breath, pleurisy, or other acute somatic complaint. The patient initially reported dysuria in the triage process but denies any dysuria to this provider via payroll specialist. The patient reports history of hysterectomy with bilateral oophorectomy 8 years ago due to large cysts, no history of cancer. Patient denies other surgical abdominal history. The patient reports she was diagnosed with bilateral nephrolithiasis in December by her urologist. Patient was in the process of preauthorization for lithotripsy, authorization came through however the patient's advises they are urologist is now on a family emergency leave, and the patient will not be able to undergo lithotripsy for the next 2 weeks. The patient reports remote history of lithotripsy in [place] many years ago. On exam the patient has left lower quadrant abdominal tenderness without associated rebound, equivocal left CVAT, no other acute findings. Patient appears nontoxic. Laboratory evaluation was obtained and reveals no leukocytosis, anemia, electrolyte abnormality, or SARAVANAN. The patient's LFTs are unremarkable. The patient's lipase is normal. The patient's urinalysis shows no evidence of infection, no hematuria. The patient's EKG is nonischemic and troponin is negative. The patient's chest x-ray shows no acute cardiopulmonary process. Secondary to the patient's lower quadrant abdominal tenderness we will obtain a CT with contrast to evaluate for diverticulitis versus ureterolithiasis. 1:13 AM 02/06/2025 (Keyur PRATHER): Patient's CT abdomen shows evidence of sigmoid diverticulitis without abscess, perforation, or other complication. The patient's CT shows no evidence of ureterolithiasis. Patient will be treated with the Augmentin and discharged with augmentin, anti-inflammatories, and instructions to follow up with PCP. Admission/Observation Consideration of admission/observation: Escalation of care including admission/observation considered Lab Data 02/05/25 17:02 02/05/25 17:32 Labs: Lab Results 02/05/25 02/05/25 02/05/25 Range/Units 17:02 17:32 18:40 WBC 7.2 (4.8-10.8) X10*3/uL RBC 5.21 (4.20-5.50) X10*6/uL Hgb 13.2 (12.0-16.0) g/dl Hct 41.0 (37.0-47.0) % MCV 78.7 L (80.0-98.0) fL MCH 25.3 L (27.0-33.0) pg MCHC 32.2 (31.0-35.0) g/dl RDW 13.3 (11.0-16.0) % Plt Count 299 (160-400) X10*3/uL MPV 10.3 (9.4-12.3) fL Immature Gran % (Auto) 0.4 (0.0-0.4) % Neut % (Auto) 56.9 (45-73) % Lymph % (Auto) 30.0 (20-40) % Collier % (Auto) 10.3 (2-11) % Eos % (Auto) 2.1 (0-4) % Baso % (Auto) 0.3 (0-2) % Lymph # (Auto) 2.2 (1.2-4.9) X10*3/uL Collier # (Auto) 0.7 (0.1-1.2) X10*3/uL Eos # (Auto) 0.2 (0.0-0.4) X10*3/uL Baso # (Auto) 0.0 (0.0-0.2) X10*3/uL Abs Immat Gran (auto) 0.03 (0.00-0.03) X10*3/uL Absolute Neuts (auto) 4.1 (2.0-8.3) x10*3/uL Absolute Nucleated RBC 0.000 (0.0-0.012) X10*3/uL Nucleated RBC % (auto) 0.0 (0.0-0.2) /100WBC PT 11.3 (10.9-12.4) SEC INR 1.0 (0.9-1.1) Sodium 140 (135-145) mmol/L Potassium 4.0 (3.3-5.1) mmol/L Chloride 108 (96-108) mmol/L Carbon Dioxide 22 (22-29) mmol/L Anion Gap 14 (12-20) BUN 17 H (9-16) mg/dL Creatinine 0.99 (0.5-1.4) mg/dL Estim Creat Clear Calc 63.1 Estimated GFR 57 Random Glucose 156 H (60-115) mg/dL Calcium 9.2 (8.4-10.2) mg/dL Total Bilirubin 0.4 (0.0-1.0) mg/dL AST 20 (5-31) U/L ALT 30 (0-31) U/L Alkaline Phosphatase 92 (39-117) U/L Troponin I High Sens < 2.7 (<3.5-17.0) ng/L Total Protein 6.9 (6.5-8.0) g/dL Albumin 4.2 (3.5-5.0) g/dL Lipase 34 (8-78) U/L Urine Color Yellow Urine Appearance Clear Urine pH 6.5 (5.0-9.0) Ur Specific [place] 1.020 (1.005-1.025) Urine Protein Negative (Neg-Trace) mg/dL Urine Glucose (UA) Negative (Negative) mg/dL Urine Ketones Negative (Negative) mg/dL Urine Blood Negative (Negative) Urine Nitrite Negative (Negative) Ur Leukocyte Esterase Negative (Negative) Independent Interpretation I performed an independent interpretation of an: EKG (EKG shows sinus tachycardia with a rate of 110, no evidence of acute ischemia, no ST elevation, no ectopy. There is moderate artifact in the baseline, QTC 446, compared to previous on 06/26/2024 there are no significant morphology changes.) Radiology Impression Discussion of test interpretation with radiology: I have reviewed the radiologist's reading. Radiologist Impression: Exam: PA and lateral views of the chest. Comparison: CT of the abdomen january 07, 2024. Findings: Mild hypoinflation. Heart size and pulmonary vasculature are within normal limits. No focal areas of consolidation. No pleural effusion or pneumothorax. Impression: Hypoinflation without acute infiltrate. This document has been electronically signed by: Sal Robledo MD on 02/05/2025 17:16:09 Discharge Plan Discharge Clinical Impression: Diverticulitis Patient Disposition: Home, Self-Care Instructions: Diverticulitis (ED), Diverticulitis Diet (ED) Additional Instructions: Eugene por elegir el [facility] para power atenci?n m?dica hoy. Afortunadamente, power evaluaci?n de laboratorio, an?lisis de orina y examen de hoy son tranquilizadores. En katelyn momento, no hay indicaci?n de ingreso hospitalario ni de observaci?n continua en urgencias, y es seguro darle de mari. Sherri c?lculos renales no se hurd desplazado de sherri ri?ones y no son la causa de power dolor. La tomograf?a computarizada collado identificado que sherri s?ntomas de hoy son causados ??por diverticulitis, dionisio infecci?n del intestino grueso. Davidson Augmentin seg?n lo prescrito hasta terminarlo. Fabiola la informaci?n adjunta sobre la diverticulitis, sherri causas, los cambios diet?ticos recomendados y sherri tratamientos. Debe sina dosis alternas (escalonadas) de ibuprofeno 600 mg y Tylenol 1000 mg cada 4 horas seg?n sea necesario para cualquier dolor adicional. Mant?ngase abraham hidratado y descanse lo suficiente. Consulte con power m?dico de cabecera para dionisio reevaluaci?n, un manejo adicional de sherri s?ntomas y atenci?n preventiva continua. Si no tiene un m?dico de cabecera, llame a [facility] al [phone] para asignarle marin nuevo. Mientras espera la asignaci?n de power nuevo m?dico de cabecera, puede llamar a nuestra Cl?ted de Atenci?n Sin Kaylie Previa al [phone] para necesidades que no kasi de emergencia. Regrese a urgencias si presenta un cambio repentino o grave en sherri s?ntomas, fiebre superior a 38 ?C que no mejora con Tylenol o ibuprofeno, v?mitos recurrentes o cualquier otro s?ntoma o inquietud nuevo o que empeore. Thank you for choosing [facility]'s Emergency Department for your care today. Thankfully your laboratory evaluation, urinalysis, and exam today are reassuring. At this time there is no indication for admission to the hospital or continued ED observation, and it is safe to discharge you home. Your kidney stones have not moved out of your kidneys and are not the source of your pain. Your CT has identified that your symptoms today are being caused by diverticulitis, an infection of your large intestine. Please take Augmentin as prescribed until it is finished. Please read the attached information regarding diverticulitis, its causes, recommended diet changes, and its treatments. You should take alternating (staggered) doses of ibuprofen 600mg and Tylenol 1000mg every 4 hours as needed for any additional pain. Please stay well hydrated and get plenty of rest. Please follow up with your primary care physician for re-evaluation, additional management of your symptoms, and continued preventative care. If you do not have a primary care physician, please call the [facility] at [phone] to establish a new primary care physician. While waiting to establish your new primary care physician, you can call our Walk[facility]in [facility] at [phone] for non-emergency needs. Please return to the emergency department if you develop a severe or sudden change in your symptoms, a fever over 100.4 that does not improve with Tylenol or Ibuprofen, recurrent vomiting, or any other new or worsening symptoms or concerns. Prescriptions: New amoxicillin-pot clavulanate 875-125 mg tablet 1 tab PO TID Qty: 30 0RF No Action bupropion HCl 150 mg tablet extended release 24 hr 150 mg PO QAM 90 Days Qty: 90 1RF metformin 500 mg tablet 500 mg PO DAILY 90 Days Qty: 90 1RF atorvastatin 20 mg tablet 20 mg PO BEDTIME 90 Days Qty: 90 1RF losartan 50 mg tablet 50 mg PO DAILY 90 Days Qty: 90 1RF omega-3 fatty acids 1,000 mg capsule 3,000 mg PO BID 90 Days Qty: 540 1RF omega-3 fatty acids-fish oil 300-1,000 mg capsule PO (DME) blood pressure test kit-large Kit See Rx Instructions .Route Qty: 1 0RF Rx Instructions: As directed (DME) pill box See Rx Instructions .Route .MEDSUPPLY Qty: 1 0RF Rx Instructions: As directed Referrals: Angella Chatman MD [Primary Care Provider, Internal Medicine] Clinical Impression: Diverticulitis Print Language: Mosotho
[2025-02-05 17:38] LABS: MANUAL DIFF FLAG NO
[2025-02-05 17:41] LABS: Hematocrit 41.0 % (37.0-47.0); Hemoglobin 13.2 g/dl (12.0-16.0); Imm Gran Abs Auto 0.03 X10*3/uL (0.00-0.03); Imm Gran Pct Auto 0.4 % (0.0-0.4); Lymphocytes Absolute Auto 2.2 X10*3/uL (1.2-4.9); Mean Corpuscular HGB Conc 32.2 g/dl (31.0-35.0); Mean Corpuscular Hemoglobin 25.3 pg (27.0-33.0); Mean Corpuscular Volume 78.7 fL (80.0-98.0); NRBC Abs Auto 0.000 X10*3/uL (0.0-0.012); NRBC Pct Auto 0.0 /100WBC (0.0-0.2); Platelet Count 299 X10*3/uL (160-400); Red Blood Count 5.21 X10*6/uL (4.20-5.50); White Blood Count 7.2 X10*3/uL (4.8-10.8)
[2025-02-05 17:51] LABS: INTERNATIONAL NORM RATIO 1.0 (0.9-1.1); Prothrombin Time 11.3 SEC (10.9-12.4)
[2025-02-05 18:11] LABS: Alanine Aminotransferase 30 U/L (0-31); Albumin Level 4.2 g/dL (3.5-5.0); Alkaline Phosphatase 92 U/L (39-117); Anion Gap 14 (12-20); Aspartate Amino Transferase 20 U/L (5-31); Blood Urea Nitrogen 17 mg/dL (9-16); Calcium 9.2 mg/dL (8.4-10.2); Carbon Dioxide 22 mmol/L (22-29); Chloride 108 mmol/L (96-108); Creatinine Clr Calc Pharmacy 63.1; Estimated Glomerular Filt Rate 57; Lipase 34 U/L (8-78); Potassium 4.0 mmol/L (3.3-5.1); Sodium 140 mmol/L (135-145); Total Protein 6.9 g/dL (6.5-8.0)
[2025-02-05 18:24] LABS: Troponin-I High Sensitivity < 2.7 ng/L (<3.5-17.0)
[2025-02-05 19:00] LABS: Appearance Urine Clear; Glucose Urine UA Negative (Negative); PH 6.5 (5.0-9.0); Specific Gravity - Urine 1.020 (1.005-1.025)
--- NOTE | 2025-02-05 21:30 | PC.NURSE ---
Called patient to come back to a room, yelling at TW about wait times and patient pain and having an elevated heart rate, educated patient and spouse on triage that was done on pt. educated on process in the emergency room and working on acuity. Patient also drinking out of burSkinkers rola cup during this incident. charge nurse notified and speaking with patients spouse while TW brought pt back
[2025-02-05 21:34] VITALS: BP 142/75; PULSE 95; RESP 19; TEMP 36.6; O2SAT 97
--- NOTE | 2025-02-05 21:42 | PC.NURSE ---
using trade recruiter services, was seen by urology 2 weeks ago and dx with bilateral kidney stones measuring 5cm and was supposed to have surgery. increased pain since last night reports increase frequency and burning
--- OUTSIDE RECORDS SUMMARY | 2025-02-05 21:42 | XMS_ITS | Clinical Summary ---
Author Organization 175 [facility] Address [address] [place] [address] Phone Care Team Providers Care Hat Brim Curler Name Role Phone Unavailable Primary Care Provider Unavailabl e Allergies Active Allergy Reactions Criticality Noted Date Comments Morphine 01/18/2025 Tirzepatide 01/18/2025 Medications ammonium lactate (AmLactin) 12 % lotion Apply topically if needed for dry skin. 400 g 2 5 01/19/20 26 Active Encounters Date Type Department Care Team Description 02/02/2025 1:15 PM EDT Office Visit Orthopedic Surgery [facility] [address] [phone] Josue Cadet, DPM Pain in both feet (Primary Dx); Metatarsalgia of right foot; Hammertoes of both feet 01/18/2025 1:45 PM EDT Consult Orthopedic [facility] [address] [phone] Josue Cadet, DPM Metatarsalgia of right foot (Primary Dx); Hammertoes of both feet; Pain in both feet from Last 3 Months Social History Tobacco Use Types Packs/Day Years Used Date Smoking Tobacco: Never Assessed Comments Unknown Sex and Gender Information Value Date Recorded Sex Assigned at Not on file Legal Sex Female 11:10 AM EDT Gender Identity Not on file Sexual Orientation Not on file Plan of Treatment Upcoming Encounters Date Type Department Care Team ([facility] Contact Info) Description 04/04/2025 1:15 PM EST Office Visit Orthopedic Surgery - [place] [address] [facility] [address] [place] [phone] Josue Cadet, DPAlbert 175 [facility] [address] [place] [address] Health Maintenance Due Date Last Done Comments Breast Cancer Screening 1965 Colorectal Cancer Screening: Colonoscopy 1965 Cervical Cancer Screening: P ap Smear 1985 Pneumococcal Vaccine: 50+ Ye ars (1 of 1 - PCV) 2014 Zoster Vaccines (1 of 2) 2014 Depression Screening 04/21/2024 HIV Screening 08/21/2024 Hepatitis C Screening 08/21/2024 Social Influencers of Health Screening 08/21/2024 COVID-19 Vaccine (1 - 2023-2 5 season) 2024 Influenza Vaccine (#1) 2024 03/04/2024 DTaP,Tdap,and Td Vaccines (2 - Td or Tdap) 03/04/2034 03/04/2024 RSV Immunization Adult Patie nts (1 - [...] patient's age to complete this topic Insurance [facility] Member Subscriber Plan / Payer (Ef fective 2023-Present) Name:SHELBI ROSS Relation to Subscriber:Self Name:Shelbi oRss Payer ID:[id number] Group ID:[id number] Type:Not on file Address: [address] [id number]
[2025-02-06] MEDS: iohexoL 350 MG/ML 100 ML INFUS..BTL IV (00:04)
[2025-02-06 01:34] VITALS: BP 120/57; PULSE 88; RESP 18; TEMP 36.5; O2SAT 94
[2025-02-06 02:10] VITALS: BP 120/57; PULSE 88; RESP 18; TEMP 36.5; O2SAT 94
== END 2025-02-06 02:11 | disposition home or self-care (01) ==
PROVIDERS: Registered Nurse Emergency; Emergency Provider Emergency Medicine; PCP Internal Medicine
DX: K57.32 Diverticulitis of large intestine without perforation or abscess without bleeding (principal); R10.A2 Flank pain, left side; R07.9 Chest pain, unspecified; R00.0 Tachycardia, unspecified; R94.31 Abnormal electrocardiogram [ECG] [EKG]
CPT/HCPCS: 36415; 71046; 74177; 80053; 81003; 83690; 84484; 85025; 85610; 93005; 96374; 99284; 99285; J1885; Q9967

== ENCOUNTER → 2025-02-05 15:59 | Outpatient (BNV) | payer OTHER, SELFPAY | PROVIDERS: Emergency Provider Emergency Medicine; PCP Internal Medicine; Visit Provider Internal Medicine Cardiovascular Disease | DX: R00.0 Tachycardia, unspecified (principal); I51.7 Cardiomegaly | CPT/HCPCS: 93010 ==

== ENCOUNTER → 2025-02-05 16:24 | Outpatient (BNV) | payer OTHER, SELFPAY | PROVIDERS: PCP Internal Medicine; Visit Provider Radiology Diagnostic Radiology | DX: R07.9 Chest pain, unspecified (principal) | CPT/HCPCS: 71046; 74177 ==

== ENCOUNTER 2025-02-23 08:42 | Day surgery (SDC) | payer OTHER, SELFPAY ==
--- OUTSIDE RECORDS SUMMARY | 2025-02-16 16:28 | XMS_ITS | Clinical Summary ---
Author Organization 175 [facility] Address [address] [place] [address] Phone Care Team Providers Care Oracle Programmer Name Role Phone Unavailable Primary Care Provider Unavailabl e Allergies Active Allergy Reactions Criticality Noted Date Comments Morphine 01/18/2025 Tirzepatide 01/18/2025 Medications ammonium lactate (AmLactin) 12 % lotion Apply topically if needed for dry skin. 400 g 2 5 01/19/20 26 Active Encounters Date Type Department Care Team Description 02/02/2025 1:15 PM EDT Office Visit Orthopedic Surgery [facility] [address] [phone] Josue Cadet, DPM Pain in both feet (Primary Dx); Metatarsalgia of right foot; Hammertoes of both feet 01/18/2025 1:45 PM EDT Consult Orthopedic [facility] [address] [phone] Josue Cadet, DPM Metatarsalgia of right foot [...] Upcoming Encounters Date Type Department Care Team ([facility] Contact Info) Description 04/04/2025 1:15 PM EST Office Visit Orthopedic Surgery - [place] [address] [place] [address] [place] [phone] Josue Cadet DPM [address] [place] [phone] Health Maintenance Due Date Last Done Comments [...] patient's age to complete this topic Insurance [facility] Member Subscriber Plan / Payer (Ef fective 2023-Present) Name:SHELBI ROSS Relation to Subscriber:Self Name:Shelbi Ross Payer ID:[id number] Group ID:[id number] Type:Not on file Address: [address] [id number]
[2025-02-21 07:34] VITALS: BMI 33.3
--- NOTE | 2025-02-21 11:43 | P.CONAN_ITS ---
Documented by User: Liza Sellers NP 02/21/25 11:45 HPI - Anesthesia Eval Consult details Narrative: 59 yr old female for right lithotripsy ESW Seen at [facility] 02/05/25, diagnosed with diverticulitis, treated with augmentin. PMFSH Active Problems Active Problems: All Active Problems Abdominal pain (Acute) Callus of foot (Acute) Impaired glucose tolerance (Acute) Bilateral kidney stones (Acute) Sinus tachycardia (Acute) Class 1 obesity with body mass index (BMI) of 33.0 to 33.9 in adult (Acute) Physical exam (Acute) Fibromyalgia (Acute) Palpitations (Acute) Nephrolithiasis (Acute) Lumbar pain (Acute) Muscle spasm (Acute) Pure hypercholesterolemia (Acute) KATHERINE (generalized anxiety disorder) (Acute) Mild major depression (Acute) Essential hypertension (Acute) Past Medical History Medical History Hypertension Diabetes 1.5, managed as type 2 Family History Family History Father Diabetes Prostate cancer Hypertension Mother Diabetes Hypertension Cancer Family/Other Substance use disorder Mental health disorder Surgical History Surgical History H/O lithotripsy History of hysterectomy Social History Social History Housing: Apartment Alcohol intake: never Patient Tobacco Use Status: Never used Tobacco e-Cigarette/Vaping Use: Never Used Second Hand Smoke Exposure: No Use of substances other than those prescribed or required for medical reasons: No Advance Directives: No Advance Directives Information Provided: Yes service: No Current occupational status: unemployed Cognitive needs: No Hearing needs: No Vision needs: Yes Meds Allergies Allergy/AdvReac Type Severity Reaction Status Date / Time aspirin Allergy Blurry Verified 02/05/25 16:22 Vision morphine AdvReac Severe dizziness, Verified 01/14/25 12:57 heart palpitation tirzepatide (From Zepbound) AdvReac Intermediate nausea, Verified 01/14/25 12:57 headache, dehydration, hair loss Exam Height,Weight and Vital Signs: Height 5 ft 1 in Weight 79.832 kg Pertinent Lab Results Pertinent Lab Results: Laboratory Tests 02/05/25 02/05/25 17:02 17:32 WBC 7.2 RBC 5.21 Hct 41.0 Plt Count 299 Sodium 140 Potassium 4.0 Chloride 108 Carbon Dioxide 22 BUN 17 H Creatinine 0.99 Documented by User: Radha Chao MD 02/23/25 10:18 [facility] Past Medical History Medical History Hypertension Diabetes 1.5, managed as type 2 Family History Family History Father Diabetes Prostate cancer Hypertension Mother Diabetes Hypertension Cancer Family/Other Substance use disorder Mental health disorder Surgical History Surgical History H/O lithotripsy History of hysterectomy History of Problems with Anesthesia: No Social History Social History Housing: Apartment Alcohol intake: never Patient Tobacco Use Status: Never used Tobacco e-Cigarette/Vaping Use: Never Used Second Hand Smoke Exposure: No Use of substances other than those prescribed or required for medical reasons: No Advance Directives: No Advance Directives Information Provided: Yes service: No Current occupational status: unemployed Cognitive needs: No Hearing needs: No Vision needs: Yes Meds Allergies Allergy/AdvReac Type Severity Reaction Status Date / Time aspirin Allergy Blurry Verified 02/05/25 16:22 Vision morphine AdvReac Severe dizziness, Verified 01/14/25 12:57 heart palpitation tirzepatide (From Zepbound) AdvReac Intermediate nausea, Verified 01/14/25 12:57 headache, dehydration, hair loss Exam Airway Mallampati Class: II TM Dist: >3cm Neck ROM: Full Loose/Missing/Broken Teeth: No Heart: RRR Lungs: CTA Assessment and Plan Assessment Anesthesia Assessment: Anesthesia Plan Discussed and Chart Reviewed Final Anesthetic Review History of Problems with Anesthesia: No NPO: Yes ASA Class: II Final Preanesthetic Review: Meds/Allgs Chart Reviewed, Consent Obtained/Reviewed and Anes Risks/Benef Reviewed Patient Risk: Low Procedure Risk: Low Anesthetic Plan Anesthetic Plan: GA Disposition: Standard PACU
--- NOTE | ~2025-02-23 | XR_ITS ---
EXAMINATION: XR ABDOMEN 1 VIEW (KUB) HISTORY: pre right ESWL COMPARISON: Correlation is made with a CT of the abdomen with contrast dated 02/05/2025. FINDINGS: Two supine views of the abdomen are submitted. The bowel gas pattern is unremarkable, without evidence of mechanical obstruction. No abnormal calcifications are identified. There are no abnormal soft tissue masses. The bones are intact. XR/XR KUB IMPRESSION: No suspicious calcifications are identified. Electronically signed by: Juan Manuel Dixon MD 02/23/2025 09:28 AM [facility]
[2025-02-23 09:45] VITALS: BP 133/73; PULSE 87; RESP 16; TEMP 36.6; O2SAT 96
[2025-02-23 09:46] LABS: Glucose, Whole Blood 125 mg/dL (60-115)
[2025-02-23] MEDS: Lactated Ringers 1,000 ML 100 ML IVCONT (09:46)
--- NOTE | 2025-02-23 10:21 | MHC.SHP ---
Pre-Procedural Eval Section A - 24 Hr Update-Section A only Date of Service: 02/23/25 The patient is an INPATIENT: No The patient has been examined within 24 hours of the surgical procedure. The History & Physical has been completed within 30 days and I have reviewed it.: Yes Section B - Complete if H&P > 30 days Chief Complaint: Calculus of kidney, right Allergies: Allergies Allergy/AdvReac Type Severity Reaction Status Date / Time aspirin Allergy Blurry Verified 02/05/25 16:22 Vision morphine AdvReac Severe dizziness, Verified 01/14/25 12:57 heart palpitation tirzepatide (From Zepbound) AdvReac Intermediate nausea, Verified 01/14/25 12:57 headache, dehydration, hair loss Plan Diagnosis/Plan: Unchanged I have reviewed the history and physical and performed a pertinent physical examination on my patient. No changes have occurred unless specified. Right ESWL. Discussed risks to include but not limited to, blood in the urine, bruising to the skin, kidney hematoma, possible need for another procedure if a stone fragment obstructs the ureter while passing, possible need to repeat procedure if stone is not completely fragmented. Time Spent With Patient Time: Total time managing care of this patient today ____ minutes.
--- NOTE | 2025-02-23 10:22 | W.PM.OPN ---
Operative Note Operative Note Date of Service: 02/23/25 Narrative: PreOperative Diagnosis:? ? Right Renal stone Post Operative Diagnosis:?Right? Renal stone Procedure:?Right? ESWL Surgeon:?Dr Conchita Vidal Anesthesia:? General Indications for procedure: The patient understands there is a risk of bruising or hematoma to the kidney, infection, and stone migration following the procedure and subsequent intervention may be required.? - Imaging 5x5 mm stone, right kidney lower pole Procedure: After informed consent was verified the patient was brought to the operating room and placed in a supine position.? Anesthesia was performed per protocol. Safety pause time-out was performed. Imaging was displayed in the room and laterality confirmed. ESWL was performed.?The stone was visualized ultrasound only.? Shockwave lithotripsy was performed, with a maximum rate of 120 hertz. After the first 300 shocks a pause for 3 minutes was completed.? A total of 2500 shocks to a maximum of power of 18 with a maximum rate of 120 hertz.? Some fragmentation of the stone was appreciated. The patient tolerated the procedure well and was transferred to the recovery area upon completion. Complications: None
[2025-02-23 11:16] VITALS: BP 127/79; PULSE 79; RESP 14; TEMP 36.8; O2SAT 99
[2025-02-23 11:21] VITALS: BP 116/77; PULSE 77; RESP 13; O2SAT 95
[2025-02-23 11:26] VITALS: BP 109/74; PULSE 79; RESP 14; O2SAT 96
[2025-02-23 11:31] VITALS: BP 122/79; PULSE 71; RESP 15; O2SAT 98
[2025-02-23 11:46] VITALS: BP 124/75; PULSE 74; RESP 16; TEMP 36.9; O2SAT 98
== END 2025-02-23 12:38 | disposition home or self-care (01) ==
PROVIDERS: PCP Internal Medicine; Visit Provider Urology
PROC: (CPT 50590; principal; 2025-02-23 10:30)
DX: N20.0 Calculus of kidney (principal); Z87.442 Personal history of urinary calculi; Z79.899 Other long term (current) drug therapy; Z88.5 Allergy status to narcotic agent; Z88.8 Allergy status to other drugs, medicaments and biological substances; Z90.710 Acquired absence of both cervix and uterus; Z56.0 Unemployment, unspecified
CPT/HCPCS: 50590; 74018; 82947; J0131; J0690; J1100; J2003; J2405; J2704; J3010

== ENCOUNTER → 2025-02-23 08:42 | Outpatient (BNV) | payer OTHER, SELFPAY | PROVIDERS: PCP Internal Medicine; Visit Provider Urology | DX: N20.0 Calculus of kidney (principal) | CPT/HCPCS: 50590 ==

== ENCOUNTER → 2025-02-23 09:00 | Outpatient (BNV) | payer OTHER, SELFPAY | PROVIDERS: PCP Internal Medicine; Visit Provider Radiology Diagnostic Radiology | DX: N20.0 Calculus of kidney (principal) | CPT/HCPCS: 74018 ==

== ENCOUNTER 2025-03-09 14:04 | Outpatient (AMB) | payer OTHER, SELFPAY ==
--- NOTE | 2025-03-09 14:19 | A.OFFPC_ITS ---
Vital Signs 03/09/25 14:27 Height 5 ft 3.78 in Weight 181 lb 6 oz BMI 31.3 BP 114/72 Blood Pressure Location Lt brachial Position Sitting Respiration 20 Pulse 93 Pulse Source Pulse Oximeter Temp 98 F Temp Source Temporal Artery Scan Pulse Oximetry (%) 99 Oxygen Delivery Method Room Air Intake Visit Reasons: 4 mo follow up bp,glucose Intake Note: bp, glucose General Superintendent Required: Yes Accompanied by: Allergies aspirin Allergy (Verified 03/09/25 14:44) Blurry Vision morphine Adverse Reaction (Severe, Verified 03/09/25 14:44) dizziness, heart palpitation tirzepatide (From Zepbound) Adverse Reaction (Intermediate, Verified 03/09/25 14:44) nausea, headache, dehydration, hair loss Medication List - Last Reconciled 03/09/25 by Angella Bauman MD atorvastatin 20 mg PO BEDTIME 90 days blood pressure test kit-large As directed bupropion HCl XL 150 mg PO QAM 90 days losartan 50 mg PO DAILY 90 days metformin 500 mg PO DAILY 90 days [pill box As directed] tamsulosin 0.4 mg PO BEDTIME 30 days Tobacco use date assessed: 07/19/24 Dental Screening Dental Screen Date: 07/19/24 HPI HPI Comments History of Present Illness Details The patient is a 59-year-old female presenting for a follow-up on her hypertension, pure hypercholesterolemia, mild major depression, chronic idiopathic constipation and recently diagnosed diabetes mellitus type 2 with an A1c of 7.3% today. The patient has known allergies to aspirin and morphine. She recently tried Zepbound, which was discontinued due to side effects of nausea and air loss. Laboratory studies from late January revealed an elevated blood glucose on metformin once a day and this is why we did A1c today proving the diagnosis of diabetes. Blood pressure is within goal. Last LDL is within goal being 66 and this was on June which will be repeated for next month. She denies any chest pain or shortness on breath. The patient reports issues with constipation and states that MiraLAX is not effective. She has a habit of eating late at night, sometimes at 2:00 or 3:00 AM, and consumes fruit at that time. Mild major depression has been stable with medications. [facility] Medical History (Updated 03/09/25 @ 15:14 by Angella Bauman MD) Hypertension Surgical History H/O lithotripsy History of hysterectomy Family History Father Diabetes Prostate cancer Hypertension Mother Diabetes Hypertension Cancer Family/Other Substance use disorder Mental health disorder Social History Housing: Apartment Alcohol intake: never Patient Tobacco Use Status: Never used Tobacco e-Cigarette/Vaping Use: Never Used Second Hand Smoke Exposure: No Use of substances other than those prescribed or required for medical reasons: No service: No Current occupational status: unemployed Cognitive needs: No Hearing needs: No Vision needs: Yes Questionnaire PHQ-9 Over the last 2 weeks, how often have you been bothered by any of the following problems? 1. Little interest or pleasure in doing things: not at all 2. Feeling down, depressed, or hopeless: not at all 3. Trouble falling or staying asleep, or sleeping too much: not at all 4. Feeling tired or having little energy: not at all 5. Poor appetite or overeating: not at all 6. Feeling bad about yourself - or that you are a failure or have let yourself or your family down: not at all 7. Trouble concentrating on things, such as reading the newspaper or watching television: not at all 8. Moving or speaking so slowly that other people could have noticed. Or the opposite - being so fidgety or restless that you have been moving around a lot more than usual: not at all 9. Thoughts that you would be better off or of hurting yourself in some way: not at all Total score: 0 Depression Screening Interpretation: Negative Depression Screening Done: Yes 48630 - PHQ-9 Billing: Yes Source: Developed by Drs. Juan Manuel Zimmerman, Saumya Bauman, Leroy Greene and colleagues, with an educational jere from [employer]. Thrive Questionnaire Date Thrive assessed: 04/28/24 I am a: Patient What is your living situation today?: I have a steady place to live Within the past 12 months, did the food you bought not last and you didn't have the money to get more?: Often true Within the past 12 months, did you worry whether your food would run out before you got money to buy more?: Often true Do you have trouble paying for medicines?: No Do you have trouble getting transportation to medical appointments?: No Do you have trouble paying your heating and electricity bill?: No Do you have trouble taking care of your child, family member or friend?: No Do you have trouble with day-to-day activities such as bathing, preparing meals, shopping, managing finances, etc.?: No Are you currently unemployed and looking for a job?: No Are you interested in more education?: No Please select the resources that you would like help with: None Currently or been in a relationship where the following occur: No concerns reported THRIVE Score: 2 AUDIT C Alcohol Use Questionnaire (AUDIT-C) 1. How often do you have a drink containing alcohol?: Never Total Score: 0 Score Reviewed/Action Taken: No KATHERINE-7 AMB Questionnaire KATHERINE-7 Date KATHERINE - 7 assessed: 07/19/24 Feeling nervous, anxious, or on edge: 1 = Several days Not being able to stop or control worryin = Not at all Worrying too much about different things: 1 = Several days Trouble relaxin = Several days Being so restless that it is hard to sit still: 1 = Several days Becoming easily annoyed or irritable: 1 = Several days Feeling afraid as if something awful might happen: 0 = Not at all Total KATHERINE-7 score (0-4 normal; 5-9 mild; 10-14 moderate; 15-21 severe): 5 Source: Developed by Drs. Juan Manuel Zimmerman, Saumya Bauman, Leroy Greene and colleagues, with an educational jere from [employer]. KATHERINE-7 Assessment Billing KATHERINE-7 Assessment Tool: KATHERINE-7 Assessment 12590 Review of Systems Const All systems reviewed & are unremarkable except as noted in HPI and below Card Denies chest pain at rest, Denies chest pain with activity, Denies edema, Denies irregular heart rhythm, Denies claudication, Denies dyspnea, Denies dyspnea on exertion, Denies orthopnea, Denies paroxysmal nocturnal dyspnea and Denies slow heart rate Resp Denies cough, Denies dyspnea and Denies dyspnea on exertion GI Denies abdominal pain, Denies change in bowel habits, Denies excessive flatus, Denies nausea and Denies vomiting Physical exam (Primary Care) Vital Signs: Last Vital Signs Temp 98 F 03/09/25 14:27 Pulse 93 03/09/25 14:27 Resp 20 03/09/25 14:27 BP 114/72 03/09/25 14:27 Pulse Ox 99 03/09/25 14:27 Oxygen Delivery Method Room Air 03/09/25 14:27 BMI result Body Mass Index 31.3 Tobacco/Smoking Status: Tobacco use Status Tobacco use date assessed 07/19/24 03/09/25 14:20 Patient Tobacco Use Status Never used Tobacco 03/09/25 14:34 e-Cigarette/Vaping Use Never Used 03/09/25 14:34 PHQ-9: PHQ-9 Score PHQ-9: Total score 0 03/09/25 20:31 Depression Screening Interpretation: Negative Thrive Assessment: Date of Thrive Assessment Date Thrive assessed 04/28/24 03/09/25 14:20 Currently or been in a relationship where the following occur: No concerns reported Resp Effort & Inspection: normal respiratory effort Auscultation: clear to auscultation bilaterally Cardio Jugular venous distension: no JVD Rate: regular rate Rhythm: regular rhythm Heart sounds: S1 normal heart sound present and S2 normal heart sound present Extrem General: Yes full ROM Results AMB Hemoglobin A1c AMB Hemoglobin A1c 7.3 % Last Edit by Joseph Bellamy CMA on 03/09/25 15:14 Results Reviewed Results Reviewed: Laboratory Last Values Hgb A1c (Clinic) 7.3 % (4.0-6.0) H 03/09/25 15:13 Coding Level of Care Code Est Pt Level 4 (35332) Complex EM visit Add On G2211 Diagnoses Essential hypertension I10 Mild major depression F32.0 Diabetes mellitus E11.9 Pure hypercholesterolemia E78.00 Chronic idiopathic constipation K59.04 Additional Codes KATHERINE-7 Assessment Billing - KATHERINE-7 Assessment Tool: KATHERINE-7 Assessment 83044 ([id number]) PHQ-9 - 94726 - PHQ-9 Billing: Yes ([id number]) Time Spent (min) 21 Assessment & Plan Assessment & Plan (1) Essential hypertension: Code(s): I10 - Essential (primary) hypertension Category: Medical (2) Mild major depression: Code(s): F32.0 - Major depressive disorder, single episode, mild Category: Medical (3) Diabetes mellitus: Code(s): E11.9 - Type 2 diabetes mellitus without complications Category: Medical (4) Pure hypercholesterolemia: Code(s): E78.00 - Pure hypercholesterolemia, unspecified Category: Medical (5) Chronic idiopathic constipation: Code(s): K59.04 - Chronic idiopathic constipation Category: Medical Plan Plan 1. Chronic idiopathic Constipation The patient reports that MiraLAX is ineffective for her constipation. I will start her on docusate as needed. High-fiber diet was advised. 2. Diabetes mellitus type 2 Start metformin twice a day. Start checking fasting blood sugar. Start diabetic diet. A1c goal is equal or less than 7%. 3. Essential hypertension Continue losartan. Blood pressure goal is equal or less than 130/80. 4. Hyperlipidemia Continue statins. LDL goal is less than 70. 5. Mild major depression Continue bupropion Orders: Orders Comprehensive Barre. Panel Fast 03/09/25 I10 - Essential (primary) hypertension Vitamin B12 and Folate 03/09/25 E53.8 - Deficiency of other specified B group vitamins Vitamin D 25-OH Total 03/09/25 E55.9 - Vitamin D deficiency, unspecified AMB Hemoglobin A1c 03/09/25 E11.9 - Type 2 diabetes mellitus without complications Medications: New blood sugar diagnostic (FreeStyle Lite Strips) Use 1 strip once a day 100 ea 1RF E11.9 - Type 2 diabetes mellitus without complications lancets (FreeStyle Lancets) Use 1 lancet once a day 100 ea 3RF E11.9 - Type 2 diabetes mellitus without complications blood-glucose meter (FreeStyle Lite Meter kit) As directed 1 ea 0RF E11.9 - Type 2 diabetes mellitus without complications docusate calcium 240 mg PO BEDTIME PRN 90 caps 1RF constipation 90 days K59.04 - Chronic idiopathic constipation Changed From metformin 500 mg PO DAILY 90 days 90 tabs 1RF To metformin 500 mg PO BID 180 tabs 2RF 90 days
[2025-03-09 14:27] VITALS: BP 114/72; PULSE 93; RESP 20; TEMP 36.6; O2SAT 99; BMI 31.3
== END 2025-03-09 15:11 | disposition home or self-care (01) ==
LOC: HO.HMCH 14:05
PROVIDERS: PCP Internal Medicine; Visit Provider Internal Medicine
DX: I10 Essential (primary) hypertension (principal); F32.0 Major depressive disorder, single episode, mild; E11.9 Type 2 diabetes mellitus without complications; E78.00 Pure hypercholesterolemia, unspecified; K59.04 Chronic idiopathic constipation

== ENCOUNTER → 2025-03-09 14:04 | Outpatient (BNVA) | payer OTHER, SELFPAY | PROVIDERS: PCP Internal Medicine; Visit Provider Internal Medicine | DX: I10 Essential (primary) hypertension (principal); F32.0 Major depressive disorder, single episode, mild; E11.9 Type 2 diabetes mellitus without complications; E78.00 Pure hypercholesterolemia, unspecified; K59.04 Chronic idiopathic constipation | CPT/HCPCS: 83036; 96127; 99212 ==

== ENCOUNTER 2025-03-28 17:10 | Outpatient (AMB) | payer OTHER, SELFPAY ==
--- NOTE | 2025-03-28 17:13 | A.OFFPC_ITS ---
Vital Signs 03/28/25 17:14 Height 5 ft 3.78 in Weight 181 lb BMI 31.3 BP 140/72 H Blood Pressure Location Lt brachial Position Sitting Pulse 76 Pulse Source Pulse Oximeter Pulse Oximetry (%) 98 Oxygen Delivery Method Room Air Intake Visit Reasons: PHYSICAL Calibration Laboratory Technician Required: No Accompanied by: Self / Same As Patient Allergies metformin Allergy (Intermediate, Verified 03/28/25 17:33) tracheal swelling aspirin Allergy (Verified 03/28/25 17:26) Blurry Vision morphine Adverse Reaction (Severe, Verified 03/28/25 17:26) dizziness, heart palpitation tirzepatide (From Zepbound) Adverse Reaction (Intermediate, Verified 03/28/25 17:26) nausea, headache, dehydration, hair loss Medication List - Last Reconciled 03/28/25 by Angella Bauman MD atorvastatin 20 mg PO BEDTIME 90 days blood pressure test kit-large As directed blood sugar diagnostic (FreeStyle Lite Strips) Use 1 strip once a day blood-glucose meter (FreeStyle Lite Meter kit) As directed bupropion HCl XL 150 mg PO QAM 90 days docusate calcium 240 mg PO BEDTIME PRN 90 days lancets (FreeStyle Lancets) Use 1 lancet once a day linagliptin (Tradjenta) 5 mg PO DAILY 90 days losartan 50 mg PO DAILY 90 days metformin 500 mg PO DAILY 90 days [pill box As directed] tamsulosin 0.4 mg PO BEDTIME 30 days Tobacco use date assessed: 07/19/24 Dental Screening Dental Screen Date: 07/19/24 HPI HPI Comments History of Present Illness Details The patient is a 59 year old female presenting for her annual physical exam and management of chronic conditions. She has a history of diabetes, with a recent hemoglobin A1c of 7.3%. She was previously on metformin, reporting she tolerated one pill well but experienced phlegm in her throat with two pills. Her current medications include atorvastatin 20 mg, bupropion 150 mg, docusate for constipation, and losartan 50 mg for hypertension. She has known allergies to aspirin and morphine, which cause tachycardia and nausea. Her past surgical history includes a hysterectomy in 2016 and a lithotripsy. She does not smoke or drink alcohol. Her weight is 181 pounds, which is stable since February when she weighed 183 pounds. - Colonoscopy: Pending. - Pap smear: Not needed due to history o f hysterectomy in 2017. - Tetanus vaccination: Up to date. - Influenza vaccination: Declined. - Mammogram done this year. [facility] Medical History Hypertension Surgical History H/O lithotripsy History of hysterectomy Family History Father Diabetes Prostate cancer Hypertension Mother Diabetes Hypertension Cancer Family/Other Substance use disorder Mental health disorder Social History Housing: Apartment Alcohol intake: never Patient Tobacco Use Status: Never used Tobacco Tobacco use type: Cigarette e-Cigarette/Vaping Use: Never Used Second Hand Smoke Exposure: No service: No Current occupational status: unemployed Cognitive needs: No Hearing needs: No Vision needs: Yes Questionnaire PHQ-9 Over the last 2 weeks, how often have you been bothered by any of the following problems? 1. Little interest or pleasure in doing things: not at all 2. Feeling down, depressed, or hopeless: not at all 3. Trouble falling or staying asleep, or sleeping too much: not at all 4. Feeling tired or having little energy: not at all 5. Poor appetite or overeating: not at all 6. Feeling bad about yourself - or that you are a failure or have let yourself or your family down: not at all 7. Trouble concentrating on things, such as reading the newspaper or watching television: not at all 8. Moving or speaking so slowly that other people could have noticed. Or the o pposite - being so fidgety or restless that you have been moving around a lot more than usual: not at all 9. Thoughts that you would be better off or of hurting yourself in some way: not at all Total score: 0 Depression Screening Interpretation: Negative Depression Screening Done: Yes 59758 - PHQ-9 Billing: Yes Source: Developed by Drs. Juan Manuel Zimmerman, Saumya Bauman, Leroy Greene and colleagues, with an educational jere from [employer]. Thrive Questionnaire Date Thrive assessed: 03/09/25 I am a: Patient What is your living situation today?: I have a steady place to live Within the past 12 months, did the food you bought not last and you didn't have the money to get more?: Often true Within the past 12 months, did you worry whether your food would run out before you got money to buy more?: Often true Do you have trouble paying for medicines?: No Do you have trouble getting transportation to medical appointments?: No Do you have trouble paying your heating and electricity bill?: No Do you have trouble taking care of your child, family member or friend?: No Do you have trouble with day-to-day activities such as bathing, preparing meals, shopping, managing finances, etc.?: No Are you currently unemployed and looking for a job?: No Are you interested in more education?: No Please select the resources that you would like help with: None Currently or been in a relationship where the following occur: No concerns reported THRIVE Score: 2 AUDIT C Alcohol Use Questionnaire (AUDIT-C) 1. How often do you have a drink containing alcohol?: Never 3. How often do you have six or more drinks on one occasion?: Never Total Score: 0 Score Reviewed/Action Taken: No KATHERINE-7 AMB Questionnaire KATHERINE-7 Date KATHERINE - 7 assessed: 07/19/24 Source: Developed by Drs. Juan Manuel Zimmerman, Saumya Bauman, Leroy Greene and colleagues, with an educational jere from [employer]. Review of Systems Const All systems reviewed & are unremarkable except as noted in HPI and below Card Denies chest pain at rest, Denies chest pain with activity, Denies edema, Denies irregular heart rhythm, Denies claudication, Denies dyspnea, Denies dyspnea on exertion, Denies orthopnea, Denies paroxysmal nocturnal dyspnea and Denies slow heart rate Resp Denies cough, Denies dyspnea and Denies dyspnea on exertion GI Denies abdominal pain, Denies change in bowel habits, Denies excessive flatus, Denies nausea and Denies vomiting Physical exam (Primary Care) Vital Signs: Last Vital Signs Pulse 76 03/28/25 17:14 BP 140/72 H 03/28/25 17:14 Pulse Ox 98 03/28/25 17:14 Oxygen Delivery Method Room Air 03/28/25 17:14 BMI result Body Mass Index 31.3 BMI Assessment/Plan discussion: High BMI High, discussed plan: lifestyle, weight reduction, dietary and physical activity Tobacco/Smoking Status: Tobacco use Status Tobacco use date assessed 07/19/24 03/28/25 17:16 Patient Tobacco Use Status Never used Tobacco 03/28/25 17:16 Tobacco use type Cigarette 03/28/25 17:21 e-Cigarette/Vaping Use Never Used 03/28/25 17:16 PHQ-9: PHQ-9 Score PHQ-9: Total score 0 03/28/25 17:33 Depression Screening Interpretation: Negative Thrive Assessment: Date of Thrive Assessment Date Thrive assessed 03/09/25 03/28/25 17:16 Currently or been in a relationship where the following occur: No concerns reported [facility] Head: Yes normal to inspection, Yes normocephalic and Yes atraumatic Ears: external ears normal Eyes General: appearance normal, both eyes and all related structures Eyelids: Yes eyelids normal Conjunctivae: conjunctivae normal Neck Neck: Yes normal visual inspection and Yes supple Resp Effort & Inspection: normal respiratory effort Auscultation: clear to auscultation bilaterally Cardio Jugular venous distension: no JVD Rate: regular rate Rhythm: regular rhythm Heart sounds: S1 normal heart sound present and S2 normal heart sound present GI Inspection: Yes normal to inspection Palpation (GI): Soft to palpation and nontender Auscultation: normal bowel sounds Skin General skin exam: no rashes or lesions noted Neuro General: no focal motor deficits Extrem General: Yes full ROM Psych Appearance: grossly normal Coding Level of Care Code Est Pt Level 3 (68875) Est Pt Prev Care 40-64y(55853) Diagnoses Physical exam Z00.00 Diabetes mellitus E11.9 Mild major depression F32.0 Additional Codes PHQ-9 - 62469 - PHQ-9 Billing: Yes ([id number]) Time Spent (min) 33 Assessment & Plan Assessment & Plan (1) Physical exam: Code(s): Z00.00 - Encounter for general adult medical examination without abnormal findings Category: Medical (2) Diabetes mellitus: Code(s): E11.9 - Type 2 diabetes mellitus without complications Category: Medical (3) Mild major depression: Code(s): F32.0 - Major depressive disorder, single episode, mild Category: Medical Plan Plan 1. Physical exam Repeat in a year. Continue yearly mammogram. 2. Diabetes Mellitus The patient's hemoglobin A1c is elevated at 7.3%. She has a history of intolerance to metformin at higher doses, experiencing throat phlegm. Will c onsider starting a GLP-1RA such as Ozempic or Mounjaro to improve glycemic control and promote weight loss. Initiation is pending insurance approval. 4. Depression The patient is taking bupropion 150 mg. No medication changes were discussed. Orders: Orders Vitamin D 25-OH Total 4 Months E55.9 - Vitamin D deficiency, unspecified Lipid Panel 4 Months E78.5 - Hyperlipidemia, unspecified Microalbumin, Random (w Creat) 4 Months R80.9 - Proteinuria, unspecified Comprehensive [place]. Panel Fast 4 Months E11.9 - Type 2 diabetes mellitus without complications Medications: New semaglutide (Ozempic) for 4 weeks 0.25 mg (0.368 mL) subcut QWEEK 1.472 mL 0RF 4 weeks
[2025-03-28 17:14] VITALS: BP 140/72; PULSE 76; O2SAT 98; BMI 31.3
== END 2025-03-28 17:43 | disposition home or self-care (01) ==
LOC: HO.HMCH 17:11
PROVIDERS: PCP Internal Medicine; Visit Provider Internal Medicine
DX: Z00.00 Encounter for general adult medical examination without abnormal findings (principal); E11.9 Type 2 diabetes mellitus without complications; F32.0 Major depressive disorder, single episode, mild

== ENCOUNTER → 2025-03-28 17:10 | Outpatient (BNVA) | payer OTHER, SELFPAY | PROVIDERS: PCP Internal Medicine; Visit Provider Internal Medicine | DX: Z00.00 Encounter for general adult medical examination without abnormal findings (principal); E11.9 Type 2 diabetes mellitus without complications; F32.0 Major depressive disorder, single episode, mild; E55.9 Vitamin D deficiency, unspecified; E78.5 Hyperlipidemia, unspecified; R80.9 Proteinuria, unspecified; Z79.899 Other long term (current) drug therapy | CPT/HCPCS: 96127; 99212; 99396 ==

== ENCOUNTER 2025-04-18 08:43 | Outpatient (REF) | payer OTHER, SELFPAY ==
--- NOTE | ~2025-04-18 | US_ITS ---
CLINICAL HISTORY: N20.0 - Calculus of kidney US RENAL Comparison: US/SR - US KIDNEY BILATERAL - 01/03/25 12:38 EDT Findings: Right kidney length 10.7 cm. Left kidney length 10.0 cm. Renal cortical thickness and echotexture are normal bilaterally. Bilateral echogenic foci most suggestive of calculi. Few 1 mm right intrarenal calculi with several 2-3 mm left intrarenal calculi. No hydronephrosis or cortical mass lesion. IMPRESSION: 1. No hydronephrosis. 2. Bilateral nephrolithiasis. This document has been electronically signed by: Daina Knox DO on 04/18/2025 19:10:29
--- OUTSIDE RECORDS SUMMARY | 2025-04-18 08:48 | XMS_ITS | Clinical Summary ---
Author Organization [address] [facility] Address [address] [place] [address] Phone Care Team Providers Care Director Compliance Name Role Phone Unavailable Primary Care Provider Unavailabl e Allergies Active Allergy Reactions Criticality Noted Date Comments Morphine 01/18/2025 Tirzepatide 01/18/2025 Medications ammonium lactate (AmLactin) 12 % lotion Apply topically if needed for dry skin. 400 g 2 5 01/19/20 26 Active Encounters Date Type Department Care Team Description 02/02/2025 1:15 PM EDT Office Visit Orthopedic Surgery [facility] [address] [phone] Josue Cadet, DPM Pain in both feet (Primary Dx); Metatarsalgia of right foot; Hammertoes of both feet 01/18/2025 1:45 PM EDT Consult Orth[facility] [address] [phone] Josue Cadet, DPM Metatarsalgia of right foot [...] Upcoming Encounters Date Type Department Care Team ([facility] Contact Info) Description 04/22/2025 12:15 PM EST Office Visit Orthopedic Surgery - [place] [address] [facility] [address] [place] [id number] Josue Cadet, DPAlbert [address] [facility] [address] [place] [address] Health Maintenance Due Date Last Done Comments Breast Cancer Screening 1965 Colorectal Cancer Screening: Colonoscopy 1965 Cervical Cancer Screening: P ap Smear 1985 Pneumococcal Vaccine: 50+ Ye ars (1 of 1 - PCV) 2014 Zoster Vaccines (1 of 2) 2014 Depression Screening 04/21/2024 HIV Screening 08/21/2024 Hepatitis C Screening 08/21/2024 Social Influencers of Health Screening 08/21/2024 COVID-19 Vaccine (1 - 2024-2 6 season) 2024 Influenza Vaccine (#1) 2024 03/04/2024 [...] patient's age to complete this topic Insurance [facility] Member Subscriber Plan / Payer (Ef fective 2023-Present) Name:SHELBI ROSS Relation to Subscriber:Self Name:Shelbi Ross Payer ID:[id number] Group ID:[id number] Type:Not on file Address: [address] [id number]
== END 2025-04-18 08:44 | disposition home or self-care (01) ==
LOC: HO.HMGCX 08:43
PROVIDERS: PCP Internal Medicine; Visit Provider Urology
DX: N20.0 Calculus of kidney (principal)
CPT/HCPCS: 76775

== ENCOUNTER → 2025-04-18 08:47 | Outpatient (BNV) | payer OTHER, SELFPAY | PROVIDERS: PCP Internal Medicine; Visit Provider Radiology Diagnostic Radiology | DX: N20.0 Calculus of kidney (principal) | CPT/HCPCS: 76775 ==